=== PATIENT | male | born 1960 | race Caucasian/White ===

== ENCOUNTER 2021-01-26 12:57 | Outpatient (REF) | payer BC, SELFPAY ==
[2021-01-26 13:56] LABS: Appearance Urine HAZY; Color Urine YELLOW; Glucose Urine UA NEG (NEG); Leukocyte Esterase Urine NEG (NEG); Nitrite Urine NEG (NEG); Specific Gravity - Urine 1.025 (1.005-1.025); UACC Culture Trigger NO; Urine Blood 3+ (NEG); Urine Ketones NEG (NEG); Urine Protein TRACE MG/DL (NEG-TRACE)
[2021-01-26 14:33] LABS: RBC Urine TNTC /HPF (0)
[2021-01-26 14:34] LABS: WBC Urine 0 /HPF (0-4)
[2021-01-27 07:25] LABS: Urine Cytology See Pathology rpt
== END 2021-01-26 12:58 | disposition home or self-care (01) ==
LOC: HO.10HDL 12:57
PROVIDERS: Visit Provider Physician Assistant
DX: N28.1 Cyst of kidney, acquired (principal)
CPT/HCPCS: 81001; 81003; 88112

== ENCOUNTER 2021-01-27 07:32 | Emergency (ER) | payer BC, SELFPAY ==
--- NOTE | ~2021-01-27 | CT_ITS ---
EXAMINATION: CT ABDOMEN AND PELVIS WITHOUT CONTRAST CLINICAL INFORMATION: Hematuria. COMPARISON: CT abdomen pelvis 06/25/2018. TECHNIQUE: Multidetector volumetric imaging was performed from the superior aspect of the liver through the pubic symphysis. Sagittal and coronal reformatted images were obtained on the technologist's workstation. This CT examination was performed using dose optimization techniques as appropriate, variously including the following: *Automated exposure control *Adjustment of mA and/or kV according to patient size (this includes techniques or standardized protocols for targeted exams where dose is matched to indication/reason for exam; i.e. extremities or head) *Use of iterative reconstruction technique DLP: 721 mGy-cm FINDINGS: LUNG BASES: The visualized lung bases are unremarkable. LIVER, GALLBLADDER, AND BILIARY TREE: The liver is normal in size, shape, and attenuation. No focal hepatic lesion or biliary ductal dilatation is present. The gallbladder is unremarkable with no evidence of radiopaque gallstones, gallbladder wall thickening, or obvious pericholecystic inflammatory changes. PANCREAS: Unremarkable. SPLEEN: Unremarkable. ADRENAL GLANDS: Unremarkable. KIDNEYS AND URETERS: No hydronephrosis or perinephric inflammatory changes are identified. A 2 mm cortical calcification is present along the lateral aspect of the interpolar segment of the left kidney slightly more conspicuous than on the comparison exam of 06/25/2018. No additional nephrolithiasis is identified. Multifocal cortical thinning of the left kidney is present and unchanged compared with 06/25/2018 suspicious for chronic cortical scarring. A 7 mm rounded partially exophytic focus (9 Hounsfield units) is associated with the anterior aspect of the interpolar segment left kidney consistent with a benign, simple cyst requiring no additional imaging follow-up. BLADDER: A 1 mm borderline punctate hyperdensity is identified in the region of the left ureterovesicular junction (series 3 image 661). This finding is at the borderline of spatial resolution of the examination appears new compared with 06/25/2018. GASTROINTESTINAL TRACT: Moderate sigmoid diverticulosis. No pericolonic inflammatory changes to suggest acute diverticulitis. Normal appendix. Normal terminal ileum. No free intraperitoneal fluid or gas collections. Normal appearance of the stomach. Concentric mural thickening of the urinary bladder. ABDOMINAL WALL: No significant hernia is appreciated. LYMPH NODES: Normal. VASCULAR: Moderate scattered calcific atherosclerosis. PELVIC VISCERA: The prostate measures 4 cm in maximum AP dimension and exhibits a benign-appearing dystrophic calcifications. OSSEOUS STRUCTURES: Mild multilevel chronic spondylosis of the visualized thoracolumbar spine. CT/CT abdomen pelvis wo con IMPRESSION: -Borderline findings suspicious for a 1 mm calculus at the left ureterovesicular junction. No hydronephrosis or ureterectasis. No additional obstructing urolithiasis. A single 2 mm cortical calcification is present in the interpolar segment of the left kidney. No additional nephrolithiasis is visualized. -Moderate sigmoid diverticulosis. No evidence of diverticulitis. -Mild diffuse prostatic enlargement. Mild diffuse mural thickening of the urinary bladder which may represent chronic trabeculation and mural hypertrophy related to chronic urinary bladder outlet obstruction. -Moderate diffuse calcific atherosclerosis.
[2021-01-27 07:37] VITALS: BP 164/78; PULSE 80; RESP 16; TEMP 36.9; O2SAT 99; BMI 29.0
--- NOTE | 2021-01-27 08:04 | ED_ITS ---
HPI - Male Genitourinary General Chief complaint: Urogenital-Male Stated complaint: blood in urine Time Seen by Provider: 01/27/21 07:45 Source: patient Mode of arrival: ambulatory Limitations: no limitations History of Present Illness HPI Narrative: PCP sent him on flomax and macrobid yesterday Complaint: other (hematuria) Onset (ago): day(s) (8) Duration: constant Location: penis Severity: mild Relieving factors: none Exacerbating factors: urination Context: other (hx of same in past - occurs this time of year, no AC therapy no ASA hx of stones and cysts) Associated symptoms: Reports blood in urine (noted some small clots but has not had trouble voiding) Related Data Previous Rx's Medication Instructions Recorded lisinopril 40 mg tablet 40 mg PO DAILY #90 tab 08/12/20 lorazepam 1 mg tablet 1 mg PO DAILY PRN 15 Days #15 tab 08/23/20 simvastatin 20 mg tablet 20 mg PO DAILY #90 tab 11/10/20 nitrofurantoin macrocrystal 100 mg 100 mg PO Q12H 7 Days #14 cap 01/25/21 capsule tamsulosin 0.4 mg capsule 0.4 mg PO BEDTIME 14 Days #14 cap 01/25/21 Allergies Allergy/AdvReac Type Severity Reaction Status Date / Time azithromycin [AZITHROMYCIN] Allergy Intermediate RASH Verified 01/03/20 07:28 prednisone Allergy Unknown rash Verified 12/25/18 00:00 Review of Systems Review of Systems: Constitutional : No Fever, No Chills ENT/Mouth : No sore throat Eyes: No Eye Pain, No Swelling, No Redness Cardiovascular : No Chest Pain, No SOB Respiratory : No Cough, No Sputum, No Wheezing Gastrointestinal :no Nausea, no Vomiting, No Diarrhea, no abdominal pain Genitourinary : no Dysuria, no urinary frequency, positive Hematuria, no Flank Pain, no hesitancy Musculoskeletal : No joint pain, No Myalgias Skin : No Skin Lesions, No rash Neuro : No Weakness, No Numbness, No Headache Psych : No Anxiety/Panic, No Depression Heme/Lymph: No Bruising, No Lymphadenopathy Endocrine : No Polyuria, No Polydipsia All other systems reviewed and are negative [facility] Past Medical History Medical History HTN (hypertension) Nephrolithiasis Renal cyst Surgical History (Updated 01/03/20 @ 07:28 by FORD Pulido) No pertinent past surgical history Family History Family History (Updated 01/03/20 @ 07:30 by FORD Pulido) Father Medical history unknown Mother COPD (chronic obstructive pulmonary disease) Sister Arrhythmia Son Automobile accident Social History Social History (Updated 01/27/21 @ 08:23 by Toña Christopher DO) Patient Tobacco Use Status: Never used Tobacco Advance Directives: No Advance Directives Information Provided: No Physical Exam Vital Signs: Vital Signs: Last Vital Signs Temp 98.3 F 01/27/21 08:35 Pulse 79 01/27/21 08:35 Resp 18 01/27/21 08:35 BP 155/94 H 01/27/21 08:35 Pulse Ox 98 01/27/21 08:35 BMI result Body Mass Index 29.0 Appearance: Alert. Oriented X3. No acute distress. Eyes: Pupils equal, round and reactive to light. ENT: Pharynx normal. Neck: Normal inspection. Neck supple. CVS: Normal heart rate and rhythm. Pulses normal. Respiratory: No respiratory distress. Breath sounds normal. Abdomen: Soft and non-tender. Skin: Skin warm and dry. Normal skin color. Extremities: No lower extremity edema. Neuro: Oriented X 3. No motor deficit. No sensory deficit. Course Course Course Narrative: cause is likely small stone - no issues voiding labs normal can be managed at home, has no pain MDM - Male Genitourinary MDM Narrative Medical decision making narrative: 60 yo male with hx of renal cysts and stones - has no pain here today with 8 days of hematuria at this time he has no trouble voiding and clots are small - no pain. His symptoms do usually occur this time of year ?related to bowling. At this time he is on flomax and macrobid from PCP. Will obtain labs, UA, CT scan for mass/stone. Dispo per results and findings. Lab Data Result diagrams: 01/27/21 08:33 01/27/21 08:33 Labs: Lab Results 01/27/21 01/27/21 Range/Units 08:33 08:33 PT 11.2 (9.9-13.0) SEC INR 1.0 (0.9-1.1) APTT 35.0 (24.1-38.0) SEC Urine Color YELLOW Urine Appearance HAZY Urine pH 6.0 (5.0-8.0) Ur Specific [place] 1.025 (1.005-1.025) Urine Protein NEG (NEG-TRACE) MG/DL Urine Glucose (UA) NEG (NEG) MG/DL Urine Ketones NEG (NEG) MG/DL Urine Blood 3+ H (NEG) Urine Nitrite NEG (NEG) Ur Leukocyte Esterase NEG (NEG) Urine RBC 76-150 H (0) /HPF Urine WBC 0 (0-4) /HPF Ur Squamous Epith Cells TRACE /LPF Urine Bacteria NONE /LPF Discharge Plan Discharge Clinical Impression: Ureterolithiasis Patient Disposition: Home, Self-Care Instructions: Ureteral Stones (ED) Additional Instructions: return to ED for any worsening symptoms or concerns -Borderline findings suspicious for a 1 mm calculus at the left ureterovesicular junction. No hydronephrosis or ureterectasis. No additional obstructing urolithiasis. A single 2 mm cortical calcification is present in the interpolar segment of the left kidney. No additional nephrolithiasis is visualized. -Moderate sigmoid diverticulosis. No evidence of diverticulitis. -Mild diffuse prostatic enlargement. Mild diffuse mural thickening of the urinary bladder which may represent chronic trabeculation and mural hypertrophy related to chronic urinary bladder outlet obstruction. -Moderate diffuse calcific atherosclerosis. continue all medications prescribed by Maxim IF YOU CANNOT VOID OR BLEEDING WORSENS PLEASE RETURN Prescriptions: No Action lisinopril 40 mg tablet 40 mg PO DAILY Qty: 90 RF: 2 lorazepam 1 mg tablet 1 mg PO DAILY PRN (Reason: anxiety) 15 Days Qty: 15 RF: 0 simvastatin 20 mg tablet 20 mg PO DAILY Qty: 90 RF: 1 tamsulosin 0.4 mg capsule 0.4 mg PO BEDTIME 14 Days Qty: 14 RF: 0 nitrofurantoin macrocrystal 100 mg capsule 100 mg PO Q12H 7 Days Qty: 14 RF: 0 Referrals: Castillo Carvalho MD [Physician] - 2 weeks
[2021-01-27 08:35] VITALS: BP 155/94; PULSE 79; RESP 18; TEMP 36.8; O2SAT 98
[2021-01-27 08:43] LABS: MANUAL DIFF FLAG NO
[2021-01-27 08:44] LABS: Appearance Urine HAZY; Color Urine YELLOW; Glucose Urine UA NEG (NEG); Leukocyte Esterase Urine NEG (NEG); Nitrite Urine NEG (NEG); Specific Gravity - Urine 1.025 (1.005-1.025); UACC Culture Trigger NO; Urine Blood 3+ (NEG); Urine Ketones NEG (NEG); Urine Protein NEG (NEG-TRACE)
[2021-01-27 08:49] LABS: Prothrombin Time 11.2 SEC (9.9-13.0)
[2021-01-27 08:58] LABS: Squamous Epithelial Cell Urine TRACE /LPF; WBC Urine 0 /HPF (0-4)
[2021-01-27 09:06] LABS: Basophils Percent Auto 0.4 % (0-2); Eosinophils Absolute Auto 0.2 X10*3/uL (0.0-0.4); Hematocrit 40.9 % (42.0-52.0); Hemoglobin 14.3 g/dl (14.0-18.0); Imm Gran Abs Auto 0.06 X10*3/uL (0.00-0.03); Imm Gran Pct Auto 0.7 % (0.0-0.4); Lymphocytes Absolute Auto 2.2 X10*3/uL (1.2-4.9); Lymphocytes Percent Auto 26.5 % (20-40); Mean Corpuscular Hemoglobin 31.1 pg (27.0-33.0); Mean Corpuscular Volume 88.9 fL (80.0-98.0); Monocytes Absolute Auto 0.9 X10*3/uL (0.1-1.2); Monocytes Percent Auto 10.6 % (2-11); Neutrophils Percent Auto 59.8 % (45-73); Platelet Count 232 X10*3/uL (160-400); Red Cell Distribution Width 11.9 % (11.0-16.0); White Blood Count 8.4 X10*3/uL (4.8-10.8)
[2021-01-27 09:16] LABS: Alanine Aminotransferase 39 U/L (0-40); Albumin Level 4.4 g/dL (3.5-5.0); Alkaline Phosphatase 107 U/L (39-117); Anion Gap 15 (12-20); Aspartate Amino Transferase 28 U/L (5-37); Bilirubin Direct 0.2 mg/dL (0.0-0.5); Bilirubin Total 0.4 mg/dL (0.0-1.0); Blood Urea Nitrogen 17 mg/dL (9-16); Calcium 9.7 mg/dL (8.4-10.2); Carbon Dioxide 24 mmol/L (22-29); Chloride 100 mmol/L (96-108); Creatinine Clr Calc Pharmacy 80.6; Estimated Glomerular Filt Rate > 60; Glucose Random 183 mg/dL (60-115); Potassium 4.6 mmol/L (3.3-5.1); Sodium 134 mmol/L (135-145); Total Protein 7.4 g/dL (6.5-8.0)
--- NOTE | 2021-01-27 09:18 | PC.NURSE ---
Pt comes in with complaints of hematuria x 8 days, is currently on lamictal and antibiotic for treatment, unable to see urologist until February, due to increasing blood clots, PCP suggested he come to the ED. Pt is A&Ox3, LCA, abd soft, non tender, + bs x3, no complaints of pain at this time, denies any other urinary S/S, no pain, hesitancy, etc. Urine at bedside is cloudy and dark josemanuel, no clots seen. CT scan completed, awaiting dispo at this time. Will continue to monitor.
== END 2021-01-27 09:43 | disposition home or self-care (01) ==
PROVIDERS: Emergency Provider Emergency Medicine; PCP Physician Assistant
DX: N13.4 Hydroureter (principal); Z87.442 Personal history of urinary calculi; I10 Essential (primary) hypertension
CPT/HCPCS: 36415; 74176; 80048; 80076; 81001; 85025; 85610; 85730; 99284

== ENCOUNTER 2021-02-01 08:31 | Outpatient (REF) | payer BC, SELFPAY ==
[2021-02-01 10:39] LABS: Hematocrit 40.9 % (42.0-52.0); Hemoglobin 14.1 g/dl (14.0-18.0); Mean Corpuscular HGB Conc 34.5 g/dl (31.0-36.0); Mean Corpuscular Hemoglobin 30.9 pg (27.0-33.0); Mean Corpuscular Volume 89.7 fL (80.0-98.0); Mean Platelet Volume 9.5 fL (9.4-12.4); Platelet Count 245 X10*3/uL (160-400); Red Blood Count 4.56 X10*6/uL (4.60-5.80); Red Cell Distribution Width 12.1 % (11.0-16.0); White Blood Count 7.1 X10*3/uL (4.8-10.8)
[2021-02-01 10:47] LABS: Appearance Urine CLEAR; Color Urine YELLOW; Glucose Urine UA NEG (NEG); Leukocyte Esterase Urine NEG (NEG); Nitrite Urine NEG (NEG); Specific Gravity - Urine 1.025 (1.005-1.025); UACC Culture Trigger NO; Urine Blood 3+ (NEG); Urine Ketones NEG (NEG); Urine Protein NEG (NEG-TRACE)
[2021-02-01 10:48] LABS: Estimated Average Glucose 131 mg/dL; Hemoglobin A1c % 6.2 %
[2021-02-01 10:55] LABS: Alanine Aminotransferase 32 U/L (0-40); Albumin Level 4.4 g/dL (3.5-5.0); Alkaline Phosphatase 85 U/L (39-117); Anion Gap 13 (12-20); Aspartate Amino Transferase 24 U/L (5-37); Bilirubin Total 0.7 mg/dL (0.0-1.0); Blood Urea Nitrogen 16 mg/dL (9-16); Calcium 9.5 mg/dL (8.4-10.2); Carbon Dioxide 25 mmol/L (22-29); Chloride 102 mmol/L (96-108); Cholesterol 181 mg/dL; Estimated Glomerular Filt Rate > 60; Glucose Fasting 131 mg/dL (60-99); HDL Cholesterol 37 mg/dL; LDL Cholesterol Calculated 81 mg/dl; Potassium 4.3 mmol/L (3.3-5.1); Sodium 136 mmol/L (135-145); Total Protein 7.3 g/dL (6.5-8.0); Triglycerides 315 mg/dL
[2021-02-01 11:04] LABS: Creatinine Urine 165.32 mg/dL; Microalbum/Creatinine Ratio Ur 5.4 ug/mg cr
[2021-02-01 11:17] LABS: Prostate Specific Antigen Scr 1.41 ng/mL (<0.05-4.0); TSH reflex Free T4 1.27 uIU/mL (0.32-4.0)
[2021-02-01 11:55] LABS: RBC Urine 30-49 /HPF (0); WBC Urine 0 /HPF (0-4)
== END 2021-02-01 08:32 | disposition home or self-care (01) ==
LOC: HO.10HDL 08:31
PROVIDERS: Visit Provider Physician Assistant
DX: I10 Essential (primary) hypertension (principal); R30.0 Dysuria; N28.1 Cyst of kidney, acquired; Z12.5 Encounter for screening for malignant neoplasm of prostate
CPT/HCPCS: 36415; 80053; 80061; 81001; 82043; 83036; 84153; 84443; 85027

== ENCOUNTER 2021-02-13 13:12 | Outpatient (REF) | payer BC, SELFPAY ==
--- NOTE | ~2021-02-13 | US_ITS ---
EXAMINATION: US RETROPERITONEAL LIMITED (RENAL ONLY) CLINICAL INFORMATION: Cyst of kidney, acquired. COMPARISON: CT abdomen and pelvis without contrast dated 01/27/2021. TECHNIQUE: Real-time imaging of the kidneys. FINDINGS: RIGHT KIDNEY: 14.0 x 5.6 x 6.6 cm (SAG x AP x TRV). The kidney is normal in size, contour, and echogenicity. Renal cortical thickness is normal. No calculi or focal parenchymal lesions. No hydronephrosis. LEFT KIDNEY: 12.2 x 5.0 x 5.1 cm (SAG x AP x TRV). The kidney is normal in size and echogenicity. Contour is mildly lobular. Renal cortical thickness is normal. No renal calculi or hydronephrosis. A lower pole 1.5 x 1.2 x 1.4 cm cyst is present which needs no further follow-up. No solid masses. Incidental note made of an echogenic liver consistent with hepatic steatosis. US/US renal BI IMPRESSION: 1. The left kidney contour is slightly lobular. Both kidneys are normal size and normal with incidentally noted left lower pole renal cyst which needs no further follow-up. 2. Incidentally noted hepatic steatosis.
== END 2021-02-13 13:13 | disposition home or self-care (01) ==
LOC: HO.US 13:12
PROVIDERS: PCP Physician Assistant; Visit Provider Urology
DX: N28.1 Cyst of kidney, acquired (principal)
CPT/HCPCS: 76775

== ENCOUNTER → 2021-02-20 13:52 | Outpatient (BNVA) | payer BC, SELFPAY | PROVIDERS: PCP Physician Assistant; Visit Provider Urology | DX: N20.0 Calculus of kidney (principal) | CPT/HCPCS: 81002 ==

== ENCOUNTER 2021-07-30 12:27 | Outpatient (REF) | payer BC, SELFPAY ==
--- NOTE | ~2021-07-30 | US_ITS ---
EXAMINATION: US RETROPERITONEAL LIMITED (RENAL ONLY) CLINICAL INFORMATION: Calculus of kidney. COMPARISON: Ultrasound renal 02/13/2021 and 06/01/2018. CT abdomen and pelvis 01/27/2021. TECHNIQUE: Real-time imaging of the kidneys. FINDINGS: RIGHT KIDNEY: 13.4 x 6.4 x 6.4 cm (SAG x AP x TRV). The kidney is normal in size, contour, and echogenicity. Renal cortical thickness is normal. No renal calculi or hydronephrosis. LEFT KIDNEY: 12.1 x 5.0 x 5.2 cm (SAG x AP x TRV). The kidney is normal in size and echogenicity. The contour of the left kidney is slightly lobulated. There are areas of left renal cortical thinning or scarring. There is a 1.4 x 1.1 x 1.7 cm cyst in the lower pole. No renal calculi or hydronephrosis. The small left renal stones seen by CT January 2021 are not appreciated. US/US renal BI IMPRESSION: Stable small left renal cyst. No stone appreciated by ultrasound.
== END 2021-07-30 12:28 | disposition home or self-care (01) ==
LOC: HO.US 12:27
PROVIDERS: Visit Provider Urology
DX: N20.0 Calculus of kidney (principal)
CPT/HCPCS: 76775

== ENCOUNTER 2021-08-03 06:30 | Outpatient (REF) | payer BC, SELFPAY ==
[2021-08-03 07:24] LABS: Hematocrit 41.8 % (42.0-52.0); Hemoglobin 14.3 g/dl (14.0-18.0); Mean Corpuscular HGB Conc 34.2 g/dl (31.0-36.0); Mean Corpuscular Hemoglobin 30.5 pg (27.0-33.0); Mean Corpuscular Volume 89.1 fL (80.0-98.0); Mean Platelet Volume 9.5 fL (9.4-12.4); Platelet Count 226 X10*3/uL (160-400); Red Blood Count 4.69 X10*6/uL (4.60-5.80); Red Cell Distribution Width 12.4 % (11.0-16.0); White Blood Count 8.9 X10*3/uL (4.8-10.8)
[2021-08-03 07:40] LABS: Estimated Average Glucose 123 mg/dL; Hemoglobin A1c % 5.9 %
[2021-08-03 07:49] LABS: Alanine Aminotransferase 33 U/L (0-40); Albumin Level 4.4 g/dL (3.5-5.0); Alkaline Phosphatase 82 U/L (39-117); Anion Gap 13 (12-20); Aspartate Amino Transferase 25 U/L (5-37); Bilirubin Total 0.8 mg/dL (0.0-1.0); Blood Urea Nitrogen 15 mg/dL (9-16); Carbon Dioxide 22 mmol/L (22-29); Chloride 103 mmol/L (96-108); Cholesterol 166 mg/dL; Estimated Glomerular Filt Rate > 60; Glucose Fasting 129 mg/dL (60-99); HDL Cholesterol 36 mg/dL; LDL Cholesterol Calculated 56 mg/dl; Potassium 4.3 mmol/L (3.3-5.1); Sodium 134 mmol/L (135-145); Total Protein 7.3 g/dL (6.5-8.0); Triglycerides 370 mg/dL
[2021-08-03 07:55] LABS: Appearance Urine CLEAR; Color Urine YELLOW; Glucose Urine UA NEG (NEG); Leukocyte Esterase Urine NEG (NEG); Nitrite Urine NEG (NEG); Specific Gravity - Urine >= 1.030 (1.005-1.025); Urine Blood NEG (NEG); Urine Ketones NEG (NEG); Urine Protein NEG (NEG-TRACE)
== END 2021-08-03 06:31 | disposition home or self-care (01) ==
LOC: HO.LAB 06:30
PROVIDERS: PCP Physician Assistant; Visit Provider Physician Assistant
DX: E78.5 Hyperlipidemia, unspecified (principal); N28.1 Cyst of kidney, acquired; R30.0 Dysuria
CPT/HCPCS: 36415; 80053; 80061; 81003; 83036; 84443; 85027

== ENCOUNTER 2022-01-25 06:34 | Outpatient (REF) | payer BC, SELFPAY ==
[2022-01-25 07:25] LABS: Hematocrit 44.2 % (42.0-52.0); Hemoglobin 14.9 g/dl (14.0-18.0); Mean Corpuscular HGB Conc 33.7 g/dl (31.0-36.0); Mean Corpuscular Hemoglobin 30.1 pg (27.0-33.0); Mean Corpuscular Volume 89.3 fL (80.0-98.0); Mean Platelet Volume 9.8 fL (9.4-12.4); Platelet Count 185 X10*3/uL (160-400); Red Blood Count 4.95 X10*6/uL (4.60-5.80); Red Cell Distribution Width 11.9 % (11.0-16.0); White Blood Count 8.6 X10*3/uL (4.8-10.8)
[2022-01-25 07:56] LABS: Estimated Average Glucose 137 mg/dL; Hemoglobin A1c % 6.4 %
[2022-01-25 08:19] LABS: Alanine Aminotransferase 30 U/L (0-40); Albumin Level 4.4 g/dL (3.5-5.0); Alkaline Phosphatase 81 U/L (39-117); Anion Gap 12 (12-20); Aspartate Amino Transferase 25 U/L (5-37); Bilirubin Total 0.6 mg/dL (0.0-1.0); Blood Urea Nitrogen 19 mg/dL (9-16); Calcium 9.4 mg/dL (8.4-10.2); Carbon Dioxide 25 mmol/L (22-29); Chloride 103 mmol/L (96-108); Cholesterol 170 mg/dL; Estimated Glomerular Filt Rate > 60; Glucose Fasting 133 mg/dL (60-99); HDL Cholesterol 34 mg/dL; LDL Cholesterol Calculated 80 mg/dl; Potassium 4.3 mmol/L (3.3-5.1); Prostate Specific Antigen Scr 1.77 ng/mL (<0.05-4.0); Sodium 136 mmol/L (135-145); TSH reflex Free T4 2.02 uIU/mL (0.32-4.0); Total Protein 7.1 g/dL (6.5-8.0); Triglycerides 283 mg/dL
== END 2022-01-25 06:35 | disposition home or self-care (01) ==
LOC: HO.LAB 06:34
PROVIDERS: PCP Physician Assistant; Visit Provider Physician Assistant
DX: E78.2 Mixed hyperlipidemia (principal); R73.01 Impaired fasting glucose; Z12.5 Encounter for screening for malignant neoplasm of prostate
CPT/HCPCS: 36415; 80053; 80061; 83036; 84153; 84443; 85027

== ENCOUNTER → 2022-02-13 08:45 | Outpatient (REF) | payer BC, SELFPAY ==
--- NOTE | 2022-02-13 08:57 | CA_ITS ---
Acquisition Time: 2022-02-13 08:59:30 Total Exercise Time: 00:07:30 Test Indications: Dyspnea Medications: LISINOPRIL LORAZAPAM SIMVASTATIN TAMSULOSIN AMLODIPINE METFORMIN Protocol: JAMES Max HR: 146 BPM 92% of Pred: 157 BPM Max BP: 184/084 mmHG Max Work Load: 9.3 METS Exercise stress test with exercise 7 min 30 sec of James protocol, achieving 92% MPHR, 9.3 METs, without anginal symptoms, with isolated PACs, atrial cuplets, freq PVCs, multifocal cuplets, with borderline ST depressions V4-V6. Test reviewed with Dr Noé Raygoza sent to PCP with report and recommendation for stress echocardiogram for further evaluation. Referred By: Alcon Pan Overread By: DARREN URENA
== END ==
LOC: HO.CARD 08:45
PROVIDERS: Visit Provider Physician Assistant
DX: R06.02 Shortness of breath (principal)
CPT/HCPCS: 93017

== ENCOUNTER → 2022-03-08 10:43 | Outpatient (REF) | payer BC, SELFPAY ==
--- NOTE | 2022-03-08 10:46 | CA_ITS ---
Acquisition Time: 2022-03-08 10:53:03 Total Exercise Time: 00:07:28 Test Indications: ABN ETT Medications: SEE CHART Protocol: LIZ Max HR: 153 BPM 97% of Pred: 157 BPM Max BP: 166/078 mmHG Max Work Load: 9.2 METS Exercise stress test with exercise 7 min 28 sec of Liz protocol, achieving 96% MPHR, without anginal symptoms, with isolated PACs, frequent isolated PVCs, multifocal cuplets and runs of trigemny, with normotensive response to exercise, with EKGs showing borderline ST changes. Echo images obtained by tech at rest and immediately post peak exercise. Definity contrast used. Test reviewed with Dr Umanzor STRESS ECHO : Technique : Images were obtained at rest and post exercise within 45 seconds. Definity contrast was used to enhance endocardial defintion. Images were obtained in multiple views and compared side to side. Findings : Images at rest were borderline. Parasternal images wer sub optimal possible due to rib shadowing. On apical views the LV systolic function appears to be normal with no wall motion abnormalities. Post exercise images also are sub optimal on parasternal windows due to shadowing artefact. On apical windows LV sytsolic function shows excellent augmentation. There are no obvious regional wall motion abnormalities. Conclusion : Stress echo is negative for ischemia Referred By: Alcon Pan Overread By: BASSEM UMANZOR MD
== END ==
LOC: HO.CARD 10:43
PROVIDERS: PCP Physician Assistant; Visit Provider Physician Assistant
DX: R06.02 Shortness of breath (principal)
CPT/HCPCS: 93350; Q9957

== ENCOUNTER 2022-08-02 06:19 | Outpatient (REF) | payer BC, SELFPAY ==
[2022-08-02 07:29] LABS: Hematocrit 41.6 % (42.0-52.0); Hemoglobin 14.3 g/dl (14.0-18.0); Mean Corpuscular HGB Conc 34.4 g/dl (31.0-36.0); Mean Corpuscular Hemoglobin 30.6 pg (27.0-33.0); Mean Corpuscular Volume 88.9 fL (80.0-98.0); Mean Platelet Volume 9.5 fL (9.4-12.4); Platelet Count 218 X10*3/uL (160-400); Red Blood Count 4.68 X10*6/uL (4.60-5.80); Red Cell Distribution Width 12.3 % (11.0-16.0); White Blood Count 7.2 X10*3/uL (4.8-10.8)
[2022-08-02 07:52] LABS: Estimated Average Glucose 123 mg/dL; Hemoglobin A1c % 5.9 %
[2022-08-02 08:16] LABS: Alanine Aminotransferase 32 U/L (0-40); Albumin Level 4.2 g/dL (3.5-5.0); Alkaline Phosphatase 63 U/L (39-117); Anion Gap 13 (12-20); Aspartate Amino Transferase 22 U/L (5-37); Bilirubin Total 0.9 mg/dL (0.0-1.0); Blood Urea Nitrogen 16 mg/dL (9-16); Calcium 9.5 mg/dL (8.4-10.2); Carbon Dioxide 22 mmol/L (22-29); Chloride 103 mmol/L (96-108); Cholesterol 163 mg/dL; Estimated Glomerular Filt Rate > 60; Glucose Fasting 128 mg/dL (60-99); HDL Cholesterol 36 mg/dL; LDL Cholesterol Calculated 73 mg/dl; Potassium 4.1 mmol/L (3.3-5.1); Sodium 134 mmol/L (135-145); Total Protein 7.2 g/dL (6.5-8.0); Triglycerides 271 mg/dL
[2022-08-02 08:23] LABS: TSH reflex Free T4 2.07 uIU/mL (0.32-4.0)
== END 2022-08-02 06:20 | disposition home or self-care (01) ==
LOC: HO.LAB 06:19
PROVIDERS: PCP Physician Assistant; Visit Provider Physician Assistant
DX: E78.2 Mixed hyperlipidemia (principal); R73.01 Impaired fasting glucose; I10 Essential (primary) hypertension
CPT/HCPCS: 36415; 80053; 80061; 83036; 84443; 85027

== ENCOUNTER 2022-08-19 07:49 | Outpatient (REF) | payer BC, SELFPAY | END 2022-08-19 07:50 | disposition home or self-care (01) | LOC: HO.US 07:49 | PROVIDERS: PCP Physician Assistant; Visit Provider Urology | DX: N20.0 Calculus of kidney (principal) | CPT/HCPCS: 76775 ==

== ENCOUNTER 2022-09-03 08:12 | Outpatient (AMB) | payer BC, SELFPAY ==
--- NOTE | 2022-09-03 08:17 | MHC.OFFVIS ---
Intake Intake Visit Reasons: 1Y US(set) Intake Note: Patient is present for Follow Up US Urology Med: Tamsulosin Antibiotic Allergy: Azithromycin Blood Thinner: None Allergies azithromycin [AZITHROMYCIN] Allergy (Intermediate, Verified 09/03/22 08:19) RASH prednisone Allergy (Unknown, Verified 09/03/22 08:19) rash Medication List - Last Reconciled 09/03/22 by Castillo Carvalho MD amlodipine 2.5 mg PO DAILY 90 days ibuprofen 800 mg PO Q8H PRN 15 days lisinopril 40 mg PO DAILY lorazepam 1 mg PO DAILY PRN 15 days metformin 500 mg PO DAILY 90 days simvastatin 20 mg PO DAILY tamsulosin 0.4 mg PO BEDTIME 90 days HPI HPI Comments History of Present Illness Details Ochoa is a pleasant male. He is a patient of Dr. Pan. He is seen for the following urologic conditions - nephrolithiasis - lower urinary tract symptoms Normal ultrasound Does have some degree of weakness of stream Encourage trial tamsulosin 0.8 mg Twelve month follow-up Encouraged activity. HbA1c 5.9. 15 minute brisk stroll after dinner. Working at [employer] home Nephrolithiasis Initial presentation emergency room January 2021 Imaging - 02/06 CT scan mild diffuse prostatic enlargement with mural thickening representing chronic trabeculation and mural hypertrophy related to chronic urinary bladder outlet obstruction - 08/08 renal ultrasound small cyst left side 1.5 cm, no stones Initial voiding symptoms include weakness of stream. Good response tamsulosin Therapeutic plan - encourage fluids - surveillance imaging Lower urinary tract symptoms Improved with tamsulosin PSA 02/06 1.4 PFSH Medical History (Updated 09/03/22 @ 09:07 by Castillo Carvalho MD) Abnormal stress ECG BPH w urinary obs/LUTS HTN (hypertension) Nephrolithiasis Renal cyst Surgical History No pertinent past surgical history Family History Father Medical history unknown Mother COPD (chronic obstructive pulmonary disease) Sister Arrhythmia Son Automobile accident Social History Housing: House Alcohol intake: current Alcohol intake frequency: a few times a month Alcohol type: beer Patient Tobacco Use Status: Never used Tobacco e-Cigarette/Vaping Use: Never Used Current occupational status: employed Current occupation: [employer] Cognitive needs: No Hearing needs: No Vision needs: No Review of Systems Const Denies chills and Denies fever(s) Card Reports no additional complaints and Denies syncope Resp Denies cough GI Denies abdominal pain and Denies heartburn Reports as per HPI and Denies change in libido Neuro Denies syncope Psych Denies change in libido Endo Denies change in libido Physical Exam Const General: cooperative, healthy appearing, comfortable and no acute distress Orientation/consciousness: patient oriented x3 HEENT Face and sinus: Yes normal facial exam Mouth: moist mucous membranes Neck Neck: Yes normal visual inspection, Yes full ROM and Yes trachea midline Chest Chest palpation & inspection: normal inspection of the chest Resp Effort & Inspection: normal respiratory effort, able to speak in complete sentences and no respiratory distress GI Inspection: Yes normal to inspection Back/Spine/Pelvis Cervical Spine: normal cervical lordosis Thoracic/Lumbar Spine: thoracic and lumbar spine normal to inspection Skin General skin exam: no rashes or lesions noted Neuro General: patient oriented x3, gait normal, tone normal and moves all extremities Extrem General: Yes normal to inspection and Yes capillary refill normal Results AMB Urinalysis, Automated UA Leukoctes 0 Eve/uL Last Edit by FORD Nye on 09/03/22 08:26 UA Nitrite Negative Last Edit by FORD Nye on 09/03/22 08:26 UA Urobilinogen 0.2 mg/dL Last Edit by FORD Nye on 09/03/22 08:26 UA Protein 0 mg/dL Last Edit by FORD Nye on 09/03/22 08:26 UA pH 6.0 Last Edit by FORD Nye on 09/03/22 08:26 UA Blood 0 Roddy/uL Last Edit by FORD Nye on 09/03/22 08:26 UA Specific [place] 1.025 Last Edit by FORD Nye on 09/03/22 08:26 UA Ketone Negative Last Edit by FORD Nye on 09/03/22 08:26 UA Bilirubin 0 mg/dL Last Edit by FORD Nye on 09/03/22 08:26 UA Glucose 0 mg/dL Last Edit by FORD Nye on 09/03/22 08:26 Results Reviewed Results Reviewed: Laboratory Last Values Urine pH (Auto) 6.0 09/03/22 08:20 Specific [place] (Auto) 1.025 09/03/22 08:20 Urine Protein (Auto) 0 mg/dL 09/03/22 08:20 Glucose (UA)(Auto) 0 mg/dL 09/03/22 08:20 Urine Ketones (Auto) Negative 09/03/22 08:20 Urine Blood (Auto) 0 Roddy/uL 09/03/22 08:20 Urine Nitrite (Auto) Negative 09/03/22 08:20 Urine Bilirubin (Auto) 0 mg/dL 09/03/22 08:20 Urine Urobilinogen (Auto) 0.2 mg/dL 09/03/22 08:20 Leukocyte Esterase (Auto) 0 Eve/uL 09/03/22 08:20 Assessment & Plan Assessment & Plan (1) Renal cyst: Code(s): N28.1 - Cyst of kidney, acquired (2) BPH w urinary obs/LUTS: Code(s): N40.1 - Benign prostatic hyperplasia with lower urinary tract symptoms; N13.8 - Other obstructive and reflux uropathy Plan 12 month follow-up Orders: Orders AMB Urinalysis Automated Today Z13.9 - Encounter for screening, unspecified US renal BI 365 Days N28.1 - Cyst of kidney, acquired Patient Instructions: Imaging studies, laboratory and physical exam results were discussed and reviewed in detail. No major barriers to patient understanding were identified. An opportunity to ask questions regarding the treatment plan was provided. All questions were answered. The patient expressed understanding and agreement with the above treatment plan. The patient is aware they should contact our office by phone for worsening of their current condition or the appearance of new urologic symptoms. Compliance is encouraged with any medications and followup testing that is ordered. It is a privilege to participate in the urologic care of your patient. If you have any questions or concerns regarding treatment for the above conditions, or other urologic issues, please do not hesitate to contact me. The office telephone contact is [phone]. This note is constructed using voice recognition software. While every effort has been made to ensure accuracy forest science professor errors may have been included. Yours sincerely, Dr Castillo Carvalho MD, [facility] - Urology Providers of Expert, Compassionate Care for the Genitourinary System Coding Level of Care Code Est Pt Level 4 (08546) Diagnoses Renal cyst N28.1 BPH w urinary obs/LUTS N40.1; N13.8
== END 2022-09-03 09:07 | disposition home or self-care (01) ==
PROVIDERS: Visit Provider Urology
DX: N28.1 Cyst of kidney, acquired (principal); N40.1 Benign prostatic hyperplasia with lower urinary tract symptoms; N13.8 Other obstructive and reflux uropathy
CPT/HCPCS: 99213

== ENCOUNTER → 2022-09-03 08:12 | Outpatient (BNVA) | payer BC, SELFPAY | PROVIDERS: Visit Provider Urology ==

== ENCOUNTER 2023-01-31 07:04 | Outpatient (REF) | payer BC, SELFPAY ==
[2023-01-31 07:54] LABS: Hematocrit 41.5 % (42.0-52.0); Hemoglobin 14.3 g/dl (14.0-18.0); Mean Corpuscular HGB Conc 34.5 g/dl (31.0-36.0); Mean Corpuscular Hemoglobin 30.4 pg (27.0-33.0); Mean Corpuscular Volume 88.1 fL (80.0-98.0); Mean Platelet Volume 9.3 fL (9.4-12.4); Platelet Count 222 X10*3/uL (160-400); Red Blood Count 4.71 X10*6/uL (4.60-5.80); Red Cell Distribution Width 11.9 % (11.0-16.0); White Blood Count 7.7 X10*3/uL (4.8-10.8)
[2023-01-31 08:20] LABS: Alanine Aminotransferase 38 U/L (0-40); Albumin Level 4.2 g/dL (3.5-5.0); Alkaline Phosphatase 86 U/L (39-117); Anion Gap 17 (12-20); Aspartate Amino Transferase 28 U/L (5-37); Bilirubin Total 0.5 mg/dL (0.0-1.0); Blood Urea Nitrogen 14 mg/dL (9-16); Calcium 9.3 mg/dL (8.4-10.2); Carbon Dioxide 22 mmol/L (22-29); Chloride 103 mmol/L (96-108); Cholesterol 161 mg/dL (<200); Estimated Glomerular Filt Rate > 60; Glucose Fasting 122 mg/dL (60-99); HDL Cholesterol 41 mg/dL (>40); LDL Cholesterol Calculated 82 mg/dL (<100); Potassium 4.3 mmol/L (3.3-5.1); Sodium 138 mmol/L (135-145); Total Protein 7.3 g/dL (6.5-8.0); Triglycerides 194 mg/dL (<150)
[2023-01-31 08:36] LABS: Prostate Specific Antigen Scr 1.52 ng/mL (<0.05-4.0)
[2023-01-31 09:12] LABS: Creatinine Urine 139.01 mg/dL; Microalbum/Creatinine Ratio Ur 5.7 ug/mg cr (<30)
== END 2023-01-31 07:05 | disposition home or self-care (01) ==
LOC: HO.LAB 07:04
PROVIDERS: PCP Physician Assistant; Visit Provider Physician Assistant
DX: I10 Essential (primary) hypertension (principal); E78.2 Mixed hyperlipidemia; Z12.5 Encounter for screening for malignant neoplasm of prostate
CPT/HCPCS: 36415; 80053; 80061; 82043; 82570; 84153; 85027

== ENCOUNTER 2023-03-31 10:55 | Outpatient (AMB) | payer BC, SELFPAY ==
[2023-03-31 11:05] VITALS: BP 160/80; BMI 29.3
--- NOTE | 2023-03-31 11:05 | A.OFFPC_ITS ---
Vital Signs 03/31/23 11:05 03/31/23 11:36 Height 5 ft 9 in Weight 198 lb 8 oz BMI 29.3 BP 160/80 H 130/80 Blood Pressure Location Lt brachial Position Sitting Intake Visit Reasons: f/u HTN Legal Administrative Secretary Required: No Accompanied by: Self / Same As Patient Allergies azithromycin [AZITHROMYCIN] Allergy (Intermediate, Verified 03/31/23 11:11) RASH prednisone Allergy (Unknown, Verified 03/31/23 11:11) rash Medication List - Last Reconciled 03/31/23 by Alcon Pan PA-C amlodipine 2.5 mg PO DAILY 90 days ibuprofen 800 mg PO Q8H PRN 15 days lisinopril 40 mg PO DAILY lorazepam 1 mg PO DAILY PRN 15 days metformin 500 mg PO DAILY 90 days simvastatin 20 mg PO DAILY tamsulosin 0.4 mg PO BEDTIME 90 days Tobacco use date assessed: 03/15/22 HPI f/u HTN HPI Details Patient is a 62-year-old male here today for a follow-up visit.? Patient has a past medical history significant for hypertension, generalized anxiety disorder, impaired glucose metabolism, nephrolithiasis, hyperlipidemia, BPH. Concern--> does report shoveling wet snow and has had some muscular like soreness in his pectoral muscles pain. Has use ibuprofen which has been helpful on reducing his pain. .. Hypertension:? Patient's blood pressure today in office slightly elevated. Upon recheck blood pressure is stablized. He does report checking his blood pressure at home and reports 120s to 130 systolic.? Will continue him on dose of lisinopril and amlodipine.? Otherwise denies any chest discomfort, shortness of breath, palpitations headaches or dizziness. .. Impaired glucose metabolism: Has been a chronic finding. Most recent fasting blood sugar 122. A1c is have been in prediabetic range. Advised on reducing his carbohydrates any agrees and understands. .. Hyperlipidemia:? Continues on statin therapy without any side effects.? Most recent lipid panel improved. He reports he has drastically reduced his alcohol intake. .. Generalized anxiety disorder:? He does use lorazepam on a very limited p.r.n. basis.? Otherwise he reports his anxiety has been well controlled. [facility] Medical History Abnormal stress ECG BPH w urinary obs/LUTS Nephrolithiasis Renal cyst HTN (hypertension) Surgical History No pertinent past surgical history Family History Father Medical history unknown Mother COPD (chronic obstructive pulmonary disease) Sister Arrhythmia Son Automobile accident Social History Housing: House Alcohol intake: current Alcohol intake frequency: a few times a month Alcohol type: beer Patient Tobacco Use Status: Never used Tobacco e-Cigarette/Vaping Use: Never Used Current occupational status: employed Current occupation: [id number] Cognitive needs: No Hearing needs: No Vision needs: No Questionnaire PHQ-9 Over the last 2 weeks, how often have you been bothered by any of the following problems? 1. Little interest or pleasure in doing things: not at all 2. Feeling down, depressed, or hopeless: not at all 3. Trouble falling or staying asleep, or sleeping too much: not at all 4. Feeling tired or having little energy: not at all 5. Poor appetite or overeating: not at all 6. Feeling bad about yourself - or that you are a failure or have let yourself or your family down: not at all 7. Trouble concentrating on things, such as reading the newspaper or watching television: not at all 8. Moving or speaking so slowly that other people could have noticed. Or the opposite - being so fidgety or restless that you have been moving around a lot more than usual: not at all 9. Thoughts that you would be better off or of hurting yourself in some way: not at all Total score: 0 Depression Screening Interpretation: Negative Depression Screening Done: Yes 57818 - PHQ-9 Billing: Yes Source: Developed by Drs. Bo Lester, Jana Austin, Fili Louis and colleagues, with an educational tran from [employer]. Thrive Questionnaire Date Thrive assessed: 03/31/23 I am a: Patient What is your living situation today?: I have a steady place to live Within the past 12 months, did the food you bought not last and you didn't have the money to get more?: Never true Within the past 12 months, did you worry whether your food would run out before you got money to buy more?: Never true Do you have trouble paying for medicines?: No Do you have trouble getting transportation to medical appointments?: No Do you have trouble paying your heating and electricity bill?: No Do you have trouble taking care of your child, family member or friend?: No Do you have trouble with day-to-day activities such as bathing, preparing meals, shopping, managing finances, etc.?: No Are you currently unemployed and looking for a job?: No Are you interested in more education?: No Please select the resources that you would like help with: None Currently or been in a relationship where the following occur: no concerns reported THRIVE Score: 0 AUDIT C Alcohol Use Questionnaire (AUDIT-C) 1. How often do you have a drink containing alcohol?: Monthly or less 2. How many drinks containing alcohol do you have on a typical day when you are drinking?: 1 or 2 3. How often do you have six or more drinks on one occasion?: Never Total Score: 1 Score Reviewed/Action Taken: No ADDIE-7 AMB Questionnaire ADDIE-7 Date ADDIE - 7 assessed: 03/31/23 Feeling nervous, anxious, or on edge: 0 = Not at all Not being able to stop or control worryin = Not at all Worrying too much about different things: 0 = Not at all Trouble relaxin = Not at all Being so restless that it is hard to sit still: 0 = Not at all Becoming easily annoyed or irritable: 0 = Not at all Feeling afraid as if something awful might happen: 0 = Not at all Total ADDIE-7 score (0-4 normal; 5-9 mild; 10-14 moderate; 15-21 severe): 0 Source: Developed by Drs. Bo Lester, Jana Austin, Fili Louis and colleagues, with an educational tran from [employer]. ADDIE-7 Assessment Billing ADDIE-7 Assessment Tool: ADDIE-7 Assessment 69322 Review of Systems Const Denies headache(s) Eyes Denies loss of vision ENT Denies vertigo, Denies dizziness, Denies headache(s) and Denies sore throat Card Denies chest pain, Denies leg edema and Denies lightheadedness Resp Denies cough, Denies hemoptysis and Denies wheezing GI Denies abdominal pain, Denies melena, Denies constipation, Denies diarrhea and Denies vomiting Denies dysuria, Denies urinary frequency and Denies urinary urgency Musc Denies arthralgias, Denies joint swelling, Denies numbness and Denies tingling Neuro Denies Abnormal speech present, Denies behavioral changes, Denies vertigo, Denies dizziness, Denies headache(s), Denies loss of vision, Denies memory loss, Denies numbness and Denies tingling Psych Denies anxiety, Denies behavioral changes, Denies depression, Denies memory loss and Denies panic attacks Rory/Lymph Denies easy bleeding and Denies easy bruising Aller/Immun Denies wheezing Physical exam (Primary Care) Vital Signs: Last Vital Signs BP 160/80 H 03/31/23 11:05 BMI result Body Mass Index 29.3 Tobacco/Smoking Status: Tobacco use Status Tobacco use date assessed 03/15/22 03/31/23 11:06 Patient Tobacco Use Status Never used Tobacco 03/31/23 11:06 e-Cigarette/Vaping Use Never Used 03/31/23 11:06 PHQ-9: PHQ-9 Score PHQ-9: Total score 0 03/31/23 11:09 Depression Screening Interpretation: Negative Thrive Assessment: Date of Thrive Assessment Date Thrive assessed 03/31/23 03/31/23 11:09 Currently or been in a relationship where the following occur: no concerns reported Const General: healthy appearing, no acute distress, alert and awake Nutritional Appearance: well nourished Orientation/consciousness: oriented to person, oriented to place and oriented to time HENAR Ears: TM's normal bilaterally General nose exam: Normal nasal mucous membranes and turbinates present Eyes Conjunctivae: conjunctivae normal Sclerae: sclerae normal Pupils: Equal, round and reactive pupils present Neck Neck: Yes no lymphadenopathy and Yes no JVD Thyroid: Thyroid normal Carotids: no bruits Resp Effort & Inspection: normal respiratory effort and not tachypneic Auscultation: no crackles, no rales, no rhonchi and no wheezes Cardio Rate: regular rate Rhythm: regular rhythm Heart sounds: no murmurs and normal S1 and S2 GI Palpation (GI): Soft to palpation, nontender, no hepatomegaly and no splenomegaly Auscultation: normal bowel sounds Skin General skin exam: no rashes or lesions noted and dry skin Neuro General: oriented to person, oriented to place and oriented to time Cranial nerves: Yes Equal, round and reactive pupils present Speech: No Abnormal speech present Gait exam (Neuro): Normal gait present Motor exam (neuro): no tremor noted Extrem Right upper extremity: full ROM Left upper extremity: full ROM Right lower extremity: full ROM; no edema Left lower extremity: full ROM; no edema Psych Mental Status: mental status grossly normal Speech and movement: Normal speech and movement present Affect: normal affect Attitude: cooperative Thought process: Normal thought process present Assessment and Plan Assessment & Plan (1) HTN (hypertension): Code(s): I10 - Essential (primary) hypertension Qualifiers: Hypertension type: primary hypertension Qualified Code(s): I10 - Essential (primary) hypertension Plan: Patient's blood pressure slightly elevated today in office. He reports that blood pressures 120-130 systolic. Otherwise denies any chest discomfort, shortness of breath, headaches or vision issues. Continues current dose of amlodipine and lisinopril with goal blood pressure remain below 140/90 (2) Impaired fasting glucose: Code(s): R73.01 - Impaired fasting glucose Plan: Patient continues on metformin 500 daily. Has been making lifestyle modifications and reduced his alcohol intake. A1c stable and not in diabetic range. Will continue metformin 500 mg daily with goal A1c to remain below 6.5 (3) HLD (hyperlipidemia): Code(s): E78.5 - Hyperlipidemia, unspecified Qualifiers: Hyperlipidemia type: mixed hyperlipidemia Qualified Code(s): E78.2 - Mixed hyperlipidemia Plan: Patient continues on statin therapy without any side effect. Most recent lipid panel showing appropriate LDL. Goal LDL to remain below 130 (4) Anxiety: Code(s): F41.9 - Anxiety disorder, unspecified Plan: Patient does use lorazepam on a very limited p.r.n. basis with good effect on reducing his anxiety. He has been using [id number] sleeping aid from [employer] which has been helpful. (5) BPH w urinary obs/LUTS: Code(s): N40.1 - Benign prostatic hyperplasia with lower urinary tract symptoms; N13.8 - Other obstructive and reflux uropathy Plan: Still does report weak urinary stream and some nocturia. Urology recommended increasing tamsulosin daily dose to 0.8 mg daily. Orders: Orders Comprehensive [place]. Panel Fast Today I10 - Essential (primary) hypertension Hemoglobin A1c Today R73.01 - Impaired fasting glucose Lipid Panel Today E78.2 - Mixed hyperlipidemia Microalbumin, Random (w Creat) Today I10 - Essential (primary) hypertension Medications: Changed From tamsulosin 0.4 mg PO BEDTIME 90 days 90 caps 1RF N13.8 - Other obstructive and reflux uropathy, N20.0 - Calculus of kidney, N40.1 - Benign prostatic hyperplasia with lower urinary tract symptoms To tamsulosin 0.4 mg PO BID 90 days 180 caps 1RF N13.8 - Other obstructive and reflux uropathy, N20.0 - Calculus of kidney, N40.1 - Benign prostatic hyperplasia with lower urinary tract symptoms Coding Level of Care Code Est Pt Level 4 (21036) Diagnoses Primary hypertension I10 Hypertension type: primary hypertension Impaired fasting glucose R73.01 Mixed hyperlipidemia E78.2 Hyperlipidemia type: mixed hyperlipidemia Anxiety F41.9 BPH w urinary obs/LUTS N40.1; N13.8 Additional Codes ADDIE-7 Assessment Billing - ADDIE-7 Assessment Tool: ADDIE-7 Assessment 18899 ([id number])
[2023-03-31 11:36] VITALS: BP 130/80
== END 2023-03-31 11:36 | disposition home or self-care (01) ==
PROVIDERS: PCP Physician Assistant; Visit Provider Physician Assistant
DX: I10 Essential (primary) hypertension (principal); R73.01 Impaired fasting glucose; E78.2 Mixed hyperlipidemia; F41.9 Anxiety disorder, unspecified; N40.1 Benign prostatic hyperplasia with lower urinary tract symptoms; N13.8 Other obstructive and reflux uropathy
CPT/HCPCS: 99214

== ENCOUNTER 2023-08-07 06:16 | Outpatient (REF) | payer BC, SELFPAY ==
[2023-08-07 07:51] LABS: Estimated Average Glucose 126 mg/dL
[2023-08-07 08:11] LABS: Alanine Aminotransferase 33 U/L (0-40); Albumin Level 4.2 g/dL (3.5-5.0); Alkaline Phosphatase 78 U/L (39-117); Anion Gap 16 (12-20); Aspartate Amino Transferase 29 U/L (5-37); Bilirubin Total 0.7 mg/dL (0.0-1.0); Blood Urea Nitrogen 20 mg/dL (9-16); Calcium 9.6 mg/dL (8.4-10.2); Carbon Dioxide 20 mmol/L (22-29); Chloride 104 mmol/L (96-108); Cholesterol 173 mg/dL (<200); Estimated Glomerular Filt Rate > 60; Glucose Fasting 134 mg/dL (60-99); HDL Cholesterol 37 mg/dL (>40); LDL Cholesterol Calculated 71 mg/dL (<100); Potassium 4.1 mmol/L (3.3-5.1); Sodium 136 mmol/L (135-145); Total Protein 7.3 g/dL (6.5-8.0); Triglycerides 329 mg/dL (<150)
[2023-08-07 09:45] LABS: Creatinine Urine 177.27 mg/dL; Microalbum/Creatinine Ratio Ur 6.2 ug/mg cr (<30)
== END 2023-08-07 06:17 | disposition home or self-care (01) ==
LOC: HO.LAB 06:16
PROVIDERS: PCP Physician Assistant; Visit Provider Physician Assistant
DX: R73.01 Impaired fasting glucose (principal); I10 Essential (primary) hypertension; E78.2 Mixed hyperlipidemia
CPT/HCPCS: 36415; 80053; 80061; 82043; 82570; 83036

== ENCOUNTER 2023-08-11 08:45 | Outpatient (AMB) | payer BC, SELFPAY ==
--- NOTE | 2023-08-11 09:13 | MHC.PC.OV ---
Vital Signs 08/11/23 09:14 08/11/23 09:27 Height 5 ft 9 in Weight 200 lb 6 oz BMI 29.6 BP 148/82 H 127/75 Blood Pressure Location Lt brachial Position Sitting Pulse 66 Pulse Source Pulse Oximeter Pulse Oximetry (%) 97 Oxygen Delivery Method Room Air Intake Visit Reasons: Annual exam Housekeeping Director Required: No Accompanied by: Self / Same As Patient Allergies azithromycin [AZITHROMYCIN] Allergy (Intermediate, Verified 08/11/23 09:19) RASH prednisone Allergy (Unknown, Verified 08/11/23 09:19) rash Medication List - Last Reconciled 08/11/23 by Alcon Pan PA-C amlodipine 2.5 mg PO DAILY 90 days ibuprofen 800 mg PO Q8H PRN 15 days lisinopril 40 mg PO DAILY lorazepam 1 mg PO DAILY PRN 15 days metformin 500 mg PO DAILY 90 days simvastatin 20 mg PO DAILY tamsulosin 0.4 mg PO BID 90 days Tobacco use date assessed: 08/11/23 Fall risk assessment: No Falls in past year Last assessed Fall Risk: 08/11/23 Dental Screening Dental Screen Date: 08/11/23 Did you have a dental visit in the last 12 months?: Yes Did you have a dental problem in the last 6 months where you did not have access to dental care?: No Was dental information given to patient?: Patient has dentist HPI Annual exam HPI Details Patient is a 62-year-old male here today for an PE.? Patient has a past medical history significant for hypertension, generalized anxiety disorder, impaired glucose metabolism, nephrolithiasis, hyperlipidemia, BPH. Concern--> no concerns today .. Hypertension:? Patient's blood pressure today in office slightly elevated. Blood pressures at home reported at 120-130 systolic.. Upon recheck blood pressure is stablized. .? Will continue him on dose of lisinopril and amlodipine.? Otherwise denies any chest discomfort, shortness of breath, palpitations headaches or dizziness. .. Impaired glucose metabolism: Has been a chronic finding. He continues on metformin, Most recent fasting blood sugar 136. A1c is have been in prediabetic range. Advised on reducing his carbohydrates any agrees and understands. .. Hyperlipidemia:? Continues on statin therapy without any side effects.? Most recent lipid panel improved. He reports he has drastically reduced his alcohol intake. .. Generalized anxiety disorder:? He does use lorazepam on a very limited p.r.n. basis.? Otherwise he reports his anxiety has been well controlled Colon cancer screening: Done in [address] Dr. Phan, tubular adenoma repeat 5 years Vaccines: Up-to-date with COVID vaccine, tetanus vaccine, annual flu vaccine, considering shingles vaccine [facility] Medical History Abnormal stress ECG BPH w urinary obs/LUTS Nephrolithiasis Renal cyst HTN (hypertension) Surgical History No pertinent past surgical history Family History Father Medical history unknown Mother COPD (chronic obstructive pulmonary disease) Sister Arrhythmia Son Automobile accident Social History (Updated 08/11/23 @ 09:25 by Alcon Pan PA-C) Housing: House Alcohol intake: current Alcohol intake frequency: a few times a month Alcohol type: beer Patient Tobacco Use Status: Never used Tobacco e-Cigarette/Vaping Use: Never Used service: No Current occupational status: employed Current occupation: [employer] Cognitive needs: No Hearing needs: No Vision needs: No Questionnaire Thrive Questionnaire Date Thrive assessed: 03/31/23 ADDIE-7 AMB Questionnaire ADDIE-7 Date ADDIE - 7 assessed: 03/31/23 Source: Developed by Drs. Bo Lester, Jana Austin, Fili Louis and colleagues, with an educational tran from [employer]. Review of Systems Const Denies body aches, Denies chills, Denies excessive sweating, Denies fatigue, Denies fever(s) and Denies headache(s) Eyes Denies blurry vision ENT Denies dysphagia, Denies vertigo, Denies dizziness, Denies headache(s), Denies hearing loss and Denies tinnitus Card Denies chest pain, Denies chest pain with activity, Denies syncope, Denies irregular heart rhythm and Denies dyspnea Resp Denies chest congestion, Denies cough, Denies hemoptysis, Denies dyspnea and Denies wheezing GI Denies abdominal pain, Denies melena, Denies hematochezia, Denies coffee ground emesis, Denies dysphagia, Denies diarrhea, Denies nausea and Denies vomiting Denies difficulty urinating, Denies dysuria, Denies urinary frequency, Denies urinary hesitancy and Denies urinary urgency Musc Denies arthralgias, Denies limited range of motion, Denies muscle cramps and Denies muscle weakness Skin/Breast Denies rash and Denies skin ulcer Neuro Denies Abnormal speech present, Denies confusion, Denies vertigo, Denies dizziness, Denies syncope, Denies headache(s), Denies memory loss and Denies seizure-like activity Psych Denies anxiety, Denies confusion, Denies depression, Denies memory loss, Denies panic attacks and Denies paranoia Endo Denies excessive sweating, Denies fatigue, Denies flushing, Denies polydipsia and Denies polyuria Aller/Immun Denies wheezing Physical exam (Primary Care) Vital Signs: Last Vital Signs Pulse 66 08/11/23 09:14 BP 127/75 08/11/23 09:27 Pulse Ox 97 08/11/23 09:14 Oxygen Delivery Method Room Air 08/11/23 09:14 BMI result Body Mass Index 29.6 Tobacco/Smoking Status: Tobacco use Status Tobacco use date assessed 08/11/23 08/11/23 09:19 Patient Tobacco Use Status Never used Tobacco 08/11/23 09:25 e-Cigarette/Vaping Use Never Used 08/11/23 09:25 Thrive Assessment: Date of Thrive Assessment Date Thrive assessed 03/31/23 08/11/23 09:19 Const General: cooperative, comfortable, no acute distress, alert and awake; No confusion Orientation/consciousness: oriented to person, oriented to place, patient oriented x3 and No confusion HENMT Head: Yes normocephalic Ears: external ears normal and TM's normal bilaterally Face and sinus: No sinus tenderness Mouth: Normal oral and palatal mucosa present and tongue normal Teeth and gingiva: dentition normal and gingiva normal Throat: Yes posterior oropharynx normal, Yes tonsils normal and Yes uvula midline Eyes Conjunctivae: conjunctivae normal Sclerae: sclerae normal Pupils: Equal, round and reactive pupils present EOM: EOMs intact bilaterally Direct Ophthalmoscopy: No no photophobia Neck Neck: Yes no lymphadenopathy, No tender and Yes no JVD Thyroid: Thyroid normal Carotids: no bruits Chest Chest palpation & inspection: no tenderness Resp Effort & Inspection: normal respiratory effort, no audible wheezes, not labored and no stridor Auscultation: no crackles, no rales, no rhonchi and no wheezes Cardio Jugular venous distension: no JVD Rate: regular rate, not bradycardic and not tachycardic Rhythm: regular rhythm Bruits: no carotid bruits Peripheral pulses: Peripheral pulses 2+ throughout GI Inspection: Yes normal to inspection, No abdominal wall ecchymosis and No visible herniation Palpation (GI): Soft to palpation, nontender, no guarding, not rigid and No hepatosplenomegaly present Auscultation: normoactive bowel sounds General: Yes no CVA tenderness Back/Spine/Pelvis Back: no CVA tenderness and No back tenderness Cervical Spine: cervical ROM normal Thoracic/Lumbar Spine: thoracic and lumbar spine normal to inspection, straight leg raise negative bilaterally, No thoraco-lumbar ROM limited and No lumbar spinal tenderness Skin Lesions: no lesions Rashes: no rashes Wounds: no wounds Neuro General: oriented to person, oriented to place, patient oriented x3, CN's II-XI intact bilaterally and No confusion Cranial nerves: Yes Equal, round and reactive pupils present and Yes Normal accommodation reflex present Cognition (Neuro): normal cognition Speech: No Abnormal speech present Gait exam (Neuro): Normal gait present Motor exam (neuro): 5/5 motor strength present throughout Extrem Right upper extremity: full ROM; no cyanosis Left upper extremity: full ROM; no cyanosis Right lower extremity: no edema Left lower extremity: no edema Psych Appearance: grossly normal Mental Status: mental status grossly normal Affect: normal affect Attitude: cooperative Thought process: Normal thought process present Assessment and Plan Assessment & Plan (1) Annual physical exam: Code(s): Z00.00 - Encounter for general adult medical examination without abnormal findings (2) HTN (hypertension): Code(s): I10 - Essential (primary) hypertension Qualifiers: Hypertension type: primary hypertension Qualified Code(s): I10 - Essential (primary) hypertension Plan: Patient's blood pressure slightly elevated today in office. He reports that home blood pressures are 120s to 130 systolic. Otherwise denies any chest discomfort, shortness of breath, headaches or vision issues. Continues current dose of amlodipine and lisinopril with goal blood pressure remain below 140/90 (3) Impaired fasting glucose: Code(s): R73.01 - Impaired fasting glucose Plan: Patient continues on metformin 500 daily. Has been making lifestyle modifications and reduced his alcohol intake. A1c stable and not in diabetic range. Will continue metformin 500 mg daily with goal A1c to remain below 6.5 (4) HLD (hyperlipidemia): Code(s): E78.5 - Hyperlipidemia, unspecified Qualifiers: Hyperlipidemia type: mixed hyperlipidemia Qualified Code(s): E78.2 - Mixed hyperlipidemia Plan: Patient continues on statin therapy without any side effect. Most recent lipid panel showing appropriate LDL. Goal LDL to remain below 130 (5) Anxiety: Code(s): F41.9 - Anxiety disorder, unspecified Plan: Patient does use lorazepam on a very limited p.r.n. basis with good effect on reducing his anxiety. He has been using [id number] sleeping aid from [employer] which has been helpful. (6) BPH w urinary obs/LUTS: Code(s): N40.1 - Benign prostatic hyperplasia with lower urinary tract symptoms; N13.8 - Other obstructive and reflux uropathy Plan: Still does report weak urinary stream and some nocturia. He is due for repeat ultrasounds of his bladder and kidneys. (7) Adenomatous colon polyp: Code(s): D12.6 - Benign neoplasm of colon, unspecified Qualifiers: Colon location: unspecified part of colon Qualified Code(s): D12.6 - Benign neoplasm of colon, unspecified Plan: Needs repeat colonoscopy Orders: Orders Comprehensive [place]. Panel Fast Today I10 - Essential (primary) hypertension Prostate Specific Antigen Scr Today E78.2 - Mixed hyperlipidemia, Z12.5 - Encounter for screening for malignant neoplasm of prostate Complete Blood Count no Diff Today I10 - Essential (primary) hypertension Lipid Panel Today E78.2 - Mixed hyperlipidemia Referrals Gastroenterology Referral D12.6 - Benign neoplasm of colon, unspecified Patient Instructions: Goal: Blood pressure to be below 140/90, A1c to remain below 6.0 Barriers: Adherence to physical activity and healthy eating habits. Coding Level of Care Code Est Pt Prev Care 40-64y(54182) Diagnoses Annual physical exam Z00.00 Primary hypertension I10 Hypertension type: primary hypertension Impaired fasting glucose R73.01 Mixed hyperlipidemia E78.2 Hyperlipidemia type: mixed hyperlipidemia Anxiety F41.9 BPH w urinary obs/LUTS N40.1; N13.8 Adenomatous polyp of colon, unspecified part of colon D12.6 Colon location: unspecified part of colon
[2023-08-11 09:14] VITALS: BP 148/82; PULSE 66; O2SAT 97; BMI 29.6
[2023-08-11 09:27] VITALS: BP 127/75
== END 2023-08-11 09:38 | disposition home or self-care (01) ==
PROVIDERS: PCP Physician Assistant; Visit Provider Physician Assistant
DX: Z00.00 Encounter for general adult medical examination without abnormal findings (principal); I10 Essential (primary) hypertension; R73.01 Impaired fasting glucose; E78.2 Mixed hyperlipidemia; F41.9 Anxiety disorder, unspecified; N40.1 Benign prostatic hyperplasia with lower urinary tract symptoms; N13.8 Other obstructive and reflux uropathy; D12.6 Benign neoplasm of colon, unspecified
CPT/HCPCS: 99396

== ENCOUNTER 2023-08-20 10:14 | Outpatient (REF) | payer BC, SELFPAY ==
--- NOTE | ~2023-08-20 | US_ITS ---
EXAMINATION: US RETROPERITONEAL LIMITED (RENAL ONLY) CLINICAL INFORMATION: Cyst of kidney, acquired. COMPARISON: Renal ultrasound 08/19/2022 and 07/30/2021. CT abdomen and pelvis 01/27/2021. X-ray KUB 05/22/2016 and 07/08/2016. TECHNIQUE: Real-time imaging of the kidneys. Limited visualization due to bowel gas. FINDINGS: RIGHT KIDNEY: 12.8 x 6.4 x 5.7 cm (SAG x AP x TRV). No hydronephrosis. 0.4 cm lower pole calculus. Renal cortical thickness is normal. Limited visualization. LEFT KIDNEY: 12.1 x 4.8 x 3.8 cm (SAG x AP x TRV). No hydronephrosis. No renal calculi. Renal cortical thickness is normal. Limited visualization. Extrarenal pelvis. Redemonstration of cysts, largest 2.1 cm lower pole cyst with layering calcification characteristic of milk of calcium. There is no specific indication for additional imaging at this time. US/US renal BI IMPRESSION: No hydronephrosis. Right 0.4 cm calculus..
== END 2023-08-20 10:15 | disposition home or self-care (01) ==
LOC: HO.US 10:14
PROVIDERS: PCP Physician Assistant; Visit Provider Urology
DX: N28.1 Cyst of kidney, acquired (principal)
CPT/HCPCS: 76775

== ENCOUNTER 2023-10-09 08:32 | Outpatient (AMB) | payer BC, SELFPAY ==
--- NOTE | 2023-10-09 08:40 | A.OFFVIS_ITS ---
Intake Visit Reasons: 1Y Follow Up-US/PVR(set) Intake Note: Patient presents today for Follow Up on: BPH and Ultrasound Results Imaging Completed: 08/20/23 Urology Med: Tamsulosin Antibiotic Allergy: Azithromycin Blood Thinner: None PVR: 52ml's Ct Mri Technologist Required: No Accompanied by: Self / Same As Patient Allergies azithromycin [AZITHROMYCIN] Allergy (Intermediate, Verified 10/09/23 09:02) RASH prednisone Allergy (Unknown, Verified 10/09/23 09:02) rash Medication List - Last Reconciled 10/09/23 by Castillo Carvalho MD amlodipine 2.5 mg PO DAILY 90 days ibuprofen 800 mg PO Q8H PRN 15 days lisinopril 40 mg PO DAILY lorazepam 1 mg PO DAILY PRN 15 days metformin 500 mg PO DAILY 90 days simvastatin 20 mg PO DAILY tamsulosin 0.4 mg PO BID 90 days HPI Comments Details: Ochoa is a pleasant male. He is a patient of Dr. Pan. He is seen for the following urologic conditions - nephrolithiasis - lower urinary tract symptoms Yearly follow-up Remains on tamsulosin Encouraged activity. HbA1c 5.9. 15 minute brisk stroll after dinner. Working at [employer] Nephrolithiasis Initial presentation emergency room January 2021 Imaging - 02/06 CT scan mild diffuse prostatic enlargement with mural thickening representing chronic trabeculation and mural hypertrophy related to chronic urinary bladder outlet obstruction - 08/08 renal ultrasound small cyst left side 1.5 cm, no stones - 08/10 renal ultrasound question small 4 mm right stone. Consistent cyst. Initial voiding symptoms include weakness of stream. Good response tamsulosin Therapeutic plan - encourage fluids - surveillance imaging Lower urinary tract symptoms Improved with tamsulosin PSA 02/06 1.4, 02/08 1.5 PFSH Medical History (Updated 10/09/23 @ 09:03 by Castillo Carvalho MD) Nephrolithiasis Abnormal stress ECG BPH w urinary obs/LUTS Renal cyst HTN (hypertension) Surgical History No pertinent past surgical history Family History Father Medical history unknown Mother COPD (chronic obstructive pulmonary disease) Sister Arrhythmia Son Automobile accident Social History (Updated 08/11/23 @ 09:25 by Alcon Pan PA-C) Housing: House Alcohol intake: current Alcohol intake frequency: a few times a month Alcohol type: beer Patient Tobacco Use Status: Never used Tobacco e-Cigarette/Vaping Use: Never Used service: No Current occupational status: employed Current occupation: [employer] Cognitive needs: No Hearing needs: No Vision needs: No Office Procedures Post Void Residual Post Residual Void Post Void Residual (PVR): 52 [id number]-[id number] Void Residual by ultrasound Results AMB Urinalysis, Automated UA Leukoctes 0 Eve/uL Last Edit by Massage Envy on 10/09/23 09:07 UA Nitrite Last Edit by Massage Envy on 10/09/23 09:07 UA Urobilinogen 0.2 mg/dL Last Edit by Massage Envy on 10/09/23 09:07 UA Protein 0 mg/dL Last Edit by Massage Envy on 10/09/23 09:07 UA pH 6.0 Last Edit by Massage Envy on 10/09/23 09:07 UA Blood 25 Roddy/uL Last Edit by Massage Envy on 10/09/23 09:07 UA Specific [place] 1.010 Last Edit by Massage Envy on 10/09/23 09:07 UA Ketone Last Edit by Massage Envy on 10/09/23 09:07 UA Bilirubin 0 mg/dL Last Edit by Massage Envy on 10/09/23 09:07 UA Glucose 0 mg/dL Last Edit by Massage Envy on 10/09/23 09:07 Assessment & Plan Assessment & Plan (1) BPH w urinary obs/LUTS: Code(s): N40.1 - Benign prostatic hyperplasia with lower urinary tract symptoms; N13.8 - Other obstructive and reflux uropathy Category: Medical (2) Nephrolithiasis: Code(s): N20.0 - Calculus of kidney Category: Medical Plan Twelve month follow-up imaging Orders: Orders US renal BI 12 Months N13.8 - Other obstructive and reflux uropathy, N40.1 - Benign prostatic hyperplasia with lower urinary tract symptoms Patient Instructions: Imaging studies, laboratory and physical exam results were discussed and reviewed in detail. No major barriers to patient understanding were identified. An opportunity to ask questions regarding the treatment plan was provided. All questions were answered. The patient expressed understanding and agreement with the above treatment plan. The patient is aware they should contact our office by phone for worsening of their current condition or the appearance of new urologic symptoms. Compliance is encouraged with any medications and followup testing that is ordered. It is a privilege to participate in the urologic care of your patient. If you have any questions or concerns regarding treatment for the above conditions, or other urologic issues, please do not hesitate to contact me. The office tele phone contact is [phone]. This note is constructed using voice recognition software. While every effort has been made to ensure accuracy tree shear operator errors may have been included. Yours sincerely, Dr Castillo Carvalho MD, [facility] - Urology Providers of Expert, Compassionate Care for the Genitourinary System Coding Level of Care Code Est Pt Level 4 (32994) Diagnoses BPH w urinary obs/LUTS N40.1; N13.8 Nephrolithiasis N20.0 CPT Codes Post Residual Void - PVR CPT Code: 77386-Ycqs Void Residual by ultrasound ([id number])
== END 2023-10-09 09:03 | disposition home or self-care (01) ==
PROVIDERS: PCP Physician Assistant; Visit Provider Urology
DX: N40.1 Benign prostatic hyperplasia with lower urinary tract symptoms (principal); N13.8 Other obstructive and reflux uropathy; N20.0 Calculus of kidney; Z13.9 Encounter for screening, unspecified
CPT/HCPCS: 99214

== ENCOUNTER 2023-10-09 08:32 | Outpatient (REF) | payer BC, SELFPAY ==
[2023-10-09 16:22] LABS: Urine Cytology See Pathology rpt
== END 2023-10-09 08:33 | disposition home or self-care (01) ==
LOC: HO.LNP 08:32
PROVIDERS: PCP Physician Assistant; Visit Provider Urology
DX: R31.0 Gross hematuria (principal)
CPT/HCPCS: 51798; 81003; 88112

== ENCOUNTER 2023-12-02 09:15 | Day surgery (SDC) | payer MEDICARE, SELFPAY ==
[2023-11-27 15:01] VITALS: BMI 30.7
--- NOTE | 2023-11-28 10:14 | P.CONAN_ITS ---
Documented by User: Iman Vigil NP 11/28/23 10:15 HPI - Anesthesia Eval Consult details Narrative: 63yo M for Colonoscopy PMFSH Active Problems Active Problems: All Active Problems Adenomatous colon polyp (Acute) Annual physical exam (Acute) Impaired fasting glucose (Acute) HTN (hypertension) (Acute) Gross hematuria (Acute) HLD (hyperlipidemia) (Acute) Anxiety (Acute) Nephrolithiasis (Acute) BPH w urinary obs/LUTS (Acute) Renal cyst (Acute) Past Medical History Medical History White coat syndrome with hypertension Impaired glucose metabolism Elevated cholesterol Abnormal stress ECG BPH w urinary obs/LUTS Nephrolithiasis Renal cyst HTN (hypertension) Family History Family History Father Medical history unknown Mother COPD (chronic obstructive pulmonary disease) Sister Arrhythmia Son Automobile accident Surgical History Surgical History Hx of lithotripsy H/O colonoscopy Social History Social History (Updated 12/02/23 @ 11:58 by Jhoana Mims MD) Housing: House Alcohol intake: current Alcohol intake frequency: a few times a month Alcohol type: beer Patient Tobacco Use Status: Never used Tobacco e-Cigarette/Vaping Use: Never Used Substance Use Type: Marijuana service: No Current occupational status: employed Current occupation: [employer] Cognitive needs: No Hearing needs: No Vision needs: No Meds Allergies Allergy/AdvReac Type Severity Reaction Status Date / Time azithromycin [AZITHROMYCIN] Allergy Intermediate RASH Verified 10/09/23 09:02 prednisone Allergy Unknown rash Verified 10/09/23 09:02 Exam Height,Weight and Vital Signs: Height 5 ft 8.5 in Weight 92.986 kg Narrative Narrative: 2022 Stress echo is negative for ischemia Assessment and Plan Assessment Anesthesia Assessment: Chart Reviewed Documented by User: Jhoana Mims MD 12/02/23 11:59 [facility] Active Problems Active Problems: All Active Problems Adenomatous colon polyp (Acute) Annual physical exam (Acute) Impaired fasting glucose (Acute) HTN (hypertension) (Acute) Gross hematuria (Acute) HLD (hyperlipidemia) (Acute) Anxiety (Acute) Nephrolithiasis (Acute) BPH w urinary obs/LUTS (Acute) Renal cyst (Acute) ETOH 5beers 5 times a week Marijuana H/o abnormal stress EKG - stress echo 02/2022 - negative for ischemia Past Medical History Medical History White coat syndrome with hypertension Impaired glucose metabolism Elevated cholesterol Abnormal stress ECG BPH w urinary obs/LUTS Nephrolithiasis Renal cyst HTN (hypertension) Family History Family History Father Medical history unknown Mother COPD (chronic obstructive pulmonary disease) Sister Arrhythmia Son Automobile accident Family history of problems with anesthesia: No Surgical History Surgical History Hx of lithotripsy H/O colonoscopy History of Problems with Anesthesia: No Social History Social History (Updated 12/02/23 @ 11:58 by Jhoana Mims MD) Housing: House Alcohol intake: current Alcohol intake frequency: a few times a month Alcohol type: beer Patient Tobacco Use Status: Never used Tobacco e-Cigarette/Vaping Use: Never Used Substance Use Type: Marijuana service: No Current occupational status: employed Current occupation: [employer] Cognitive needs: No Hearing needs: No Vision needs: No Meds Allergies Allergy/AdvReac Type Severity Reaction Status Date / Time azithromycin [AZITHROMYCIN] Allergy Intermediate RASH Verified 10/09/23 09:02 prednisone Allergy Unknown rash Verified 10/09/23 09:02 Exam Height,Weight and Vital Signs: Height 5 ft 8.5 in Weight 92.986 kg Vital Signs Temp Pulse Resp BP Pulse Ox O2 Del Method 12/02/23 10:38 98.3 F 90 16 179/97 H 97 Room Air Pertinent Lab Results Pertinent Lab Results: Lab Results 12/02/23 Range/Units 10:48 POC Glucose 118 H (60-115) mg/dL Airway Mallampati Class: II TM Dist: >3cm Neck ROM: Full Loose/Missing/Broken Teeth: Yes (Missing tooth bottom left back. Denies broken or loose teeth) Heart: RRR Lungs: CTAB Assessment and Plan Assessment Anesthesia Assessment: Anesthesia Plan Discussed and Chart Reviewed Final Anesthetic Review Family History of Problems with Anesthesia: No History of Problems with Anesthesia: No NPO: Yes ASA Class: III Final Preanesthetic Review: No Changes in Pt Med Stat, Meds/Allgs Chart Reviewed, Consent Obtained/Reviewed and Anes Risks/Benef Reviewed Patient Risk: Intermediate Procedure Risk: Low Assessment/Block/Sedation in SS: Assess/Block/Sedation-SS Anesthetic Plan Anesthetic Plan: TIVA Disposition: Standard PACU
[2023-12-02 10:32] VITALS: BMI 29.2
[2023-12-02 10:38] VITALS: BP 179/97; PULSE 90; RESP 16; TEMP 36.8; O2SAT 97
[2023-12-02 10:52] LABS: Glucose, Whole Blood 118 mg/dL (60-115)
[2023-12-02] MEDS: Lactated Ringers 1,000 ML 100 ML IVCONT (10:55)
--- NOTE | 2023-12-02 11:29 | MHC.SHP ---
Pre-Procedural Eval Section A - 24 Hr Update-Section A only Date of Service: 12/02/23 The patient is an INPATIENT: No Changes since office visit: No Cold of Flu in the past 2 weeks, No New Medical Problems, No Changes in Medication and No Patient answered all questions The patient has been examined within 24 hours of the surgical procedure. The History & Physical has been completed within 30 days and I have reviewed it.: Yes Section B - Complete if H&P > 30 days Chief Complaint: screening Allergies: Allergies Allergy/AdvReac Type Severity Reaction Status Date / Time azithromycin [AZITHROMYCIN] Allergy Intermediate RASH Verified 10/09/23 09:02 prednisone Allergy Unknown rash Verified 10/09/23 09:02 Plan I have reviewed the history and physical and performed a pertinent physical examination on my patient. No changes have occurred unless specified. Time Spent With Patient Time: Total time managing care of this patient today ____ minutes.
[2023-12-02 12:09] VITALS: BP 126/79; PULSE 73; RESP 18; TEMP 36.1; O2SAT 95
[2023-12-02 12:24] VITALS: BP 123/75; PULSE 78; RESP 18; TEMP 36.1; O2SAT 100
--- NOTE | 2023-12-02 12:49 | OP_ITS ---
DATE OF SERVICE: 12/02/2023 SURGEON: Edi Phan MD INDICATIONS: Colon cancer screening and prior history of adenomatous colon polyps. PREOPERATIVE DIAGNOSIS: POSTOPERATIVE DIAGNOSIS: PROCEDURE PERFORMED: Colonoscopy to the terminal ileum. ESTIMATED BLOOD LOSS: COMPLICATIONS: ANESTHESIA: Monitored anesthesia care. ASSISTANTS: SPECIMENS: DESCRIPTION OF PROCEDURE: A history and physical was performed. The risks and benefits of the procedure were explained to the patient and informed consent was obtained. The patient was placed in the left lateral decubitus position. A digital rectal exam was performed and was found to be normal. The Olympus pediatric video colonoscope was introduced into the rectum and advanced to the cecum. The cecum was identified by transillumination, palpation, and identification of ileocecal valve. Examination was performed and the scope was removed. He tolerated the procedure well and was returned to recovery area in stable condition. FINDINGS: The terminal ileum was examined and appeared normal. The visualized colonic mucosa was normal. The quality of the prep was good. No polyps were identified. Retroflexed examination showed moderate-sized internal hemorrhoids. There was mild sigmoid diverticulosis. IMPRESSION: Normal colonoscopy. RECOMMENDATIONS: 1. Follow up as needed. 2. Repeat colonoscopy is recommended in 10 years for average-risk individuals. MD PITA Rizo/RALPH / [phone]
== END 2023-12-02 12:55 | disposition home or self-care (01) ==
PROVIDERS: PCP Physician Assistant; Visit Provider Internal Medicine Gastroenterology
PROC: 0DJD8ZZ Inspection of Lower Intestinal Tract, Via Natural or Artificial Opening Endoscopic (ICD-10-PCS; CPT 45378; principal; 2023-12-02 11:30)
DX: Z12.11 Encounter for screening for malignant neoplasm of colon (principal); Z86.0101 Personal history of adenomatous and serrated colon polyps; K57.30 Diverticulosis of large intestine without perforation or abscess without bleeding; K64.8 Other hemorrhoids; I10 Essential (primary) hypertension; E78.5 Hyperlipidemia, unspecified; N40.0 Benign prostatic hyperplasia without lower urinary tract symptoms; N28.1 Cyst of kidney, acquired; R73.02 Impaired glucose tolerance (oral); Z87.442 Personal history of urinary calculi; Z79.84 Long term (current) use of oral hypoglycemic drugs; Z79.899 Other long term (current) drug therapy; Z79.1 Long term (current) use of non-steroidal anti-inflammatories (NSAID)
CPT/HCPCS: G0105; 82947; J2003; J2704

== ENCOUNTER 2024-01-27 06:08 | Outpatient (REF) | payer MEDICARE, SELFPAY ==
[2024-01-27 07:24] LABS: Hematocrit 39.5 % (42.0-52.0); Hemoglobin 14.3 g/dl (14.0-18.0); Mean Corpuscular HGB Conc 36.2 g/dl (31.0-36.0); Mean Corpuscular Hemoglobin 31.6 pg (27.0-33.0); Mean Corpuscular Volume 87.4 fL (80.0-98.0); Mean Platelet Volume 9.4 fL (9.4-12.4); Platelet Count 217 X10*3/uL (160-400); Red Blood Count 4.52 X10*6/uL (4.60-5.80); Red Cell Distribution Width 11.8 % (11.0-16.0); White Blood Count 7.6 X10*3/uL (4.8-10.8)
[2024-01-27 07:49] LABS: Alanine Aminotransferase 45 U/L (0-40); Albumin Level 4.3 g/dL (3.5-5.0); Alkaline Phosphatase 80 U/L (39-117); Anion Gap 13 (12-20); Aspartate Amino Transferase 33 U/L (5-37); Bilirubin Total 0.5 mg/dL (0.0-1.0); Blood Urea Nitrogen 15 mg/dL (9-16); Calcium 9.2 mg/dL (8.4-10.2); Carbon Dioxide 22 mmol/L (22-29); Chloride 102 mmol/L (96-108); Cholesterol 169 mg/dL (<200); Estimated Glomerular Filt Rate > 60; Glucose Fasting 143 mg/dL (60-99); HDL Cholesterol 37 mg/dL (>40); LDL Cholesterol Calculated 68 mg/dL (<100); Potassium 4.1 mmol/L (3.3-5.1); Sodium 133 mmol/L (135-145); Total Protein 7.2 g/dL (6.5-8.0); Triglycerides 321 mg/dL (<150)
[2024-01-27 08:13] LABS: Prostate Specific Antigen Scr 1.94 ng/mL (<0.05-4.0)
--- OUTSIDE RECORDS SUMMARY | 2024-01-28 18:23 | XMS_ITS | Patient Health Record ---
Author Organization [facility] Address [address] [place] [address] Care Team Providers Care Electrical Products Engineer Name Role Phone Alcon Pan Primary Care Provider Unavailab Edi Lombardo Jr Unavailable ALLERGIES Allergen (clinical drug ingredient) Drug/Non Drug Allergy documented on EMR Reaction Allergy Type Onset Date Status PredniSONE Unknown Drug Allergy Active RESULTS Component Value Reference Range Notes Glucose, Whole Blood Reviewed date:12/02/2023 02:36:46 PM Interpretation: Performing Lab:[facility], [address] [place] [id number] Notes/Report: Glucose, Whole Blood 118 60-115 mg/dL METER # : [id number] REASON FOR REFERRAL No Information MEDICATIONS Medication SIG (Take, Route, Frequency, Duration) Notes Start Date End Date Status amLODIPine Besylate 2.5 MG 1 tablet Orally Once a day for 30 day(s) Active metFORMIN HCl 500 MG 1 tablet with a isaac l Orally Once a day for 30 day(s) Active Simvastatin 20 MG TAKE 1 TABLET IN THE EVENING ONCE A DAY Oral Once a day Active Lisinopril 40 MG 1 tablet Orally Once a day Active Ibuprofen 800 MG 1 tablet with food o r milk as needed Orally prn as needed Active Tamsulosin HCl 0.4 MG as directed Orally Active IMMUNIZATIONS Vaccine Route Administration Date Status Comme nts Influenza Unknown 01/07/2023 Administered Influenza Unknown 07/09/2018 Refused SOCIAL HISTORY Tobacco Use: Social History Observation Description Date Details (start date - stop date) Never Smoker NA - NA Sex Assigned At : Social History Observation Description Sex Assigned At Unknown Tobacco Use/Smoking Question Answer Notes Patient is a nonsmoker Alcohol Screen Question Answer Notes Did you have a drink contain ing alcohol in the past year? Yes How often did you have a dri nk containing alcohol in the past year? 2 to 3 times a week (3 points) How many drinks did you have on a typical day when you were drinking in the past year? 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 (Z79.84) Active confirmed 549227752847390 VITAL SIGNS Temperature 98.4 degrees Fahrenheit 11/17/2023 Blood pressure diastolic 00 mm Hg 11/17/2023 Height 68.5 in 11/17/2023 Blood pressure systolic 000 mm Hg 11/17/2023 Weight 205 lbs 11/17/2023 BMI 30.71 kg/m2 11/17/2023 Encounters Encounter Location Date Provider Diagnosis [facility] [place] Out[place] [address] [place], [place] [phone] 12/02/2023 Edi Phan Jr Colon cancer screening Z12.11 [facility] [address] [place] [address] 11/17/2023 Edi Phan Jr Colon cancer screening Z12.11 ; group home (current) use of oral hypoglycemic drugs Z79.84 and Encounter for long-term (current) use of NSAIDs Z79.1 ASSESSMENTS Encounter Date Diagnosis Assessment Notes Treatment Notes Treatment Clinical Notes 12/02/2023 Colon cancer screening (ICD-10 - Z12.11) 11/17/2023 Colon cancer screening (ICD-10 - Z12.11) A-fib material was printed 11/17/2023 group home (current) use of oral hypoglycemic drugs (ICD-10 - Z79.84) 11/17/2023 Encounter for long-term (current) use of NSAIDs (ICD-10 - Z79.1) PLAN OF TREATMENT Future Test Test Name Order Date COLONOSCOPY 07/09/2018 COLONOSCOPY 11/17/2023 Insurance Providers Payer Name Payer Address Payer Phone Subscriber Number Group Number Insured Name Patient Relationship to Insured Coverage Start Date Coverage End Date [facility] [address] TY MELCHOR [id number] ANGELINA RHOADES Self - patient is the insured MEDICAL (GENERAL) HISTORY Medical History History ICD Code Nephrolithiasis Kidney cysts BPH Hypertension Colon polyps, colonoscopy 12/05, tubular adenoma, five-year followup Hyperlipidemia Surgical History Surgery Date(Month/Year)
--- OUTSIDE RECORDS SUMMARY | 2024-01-28 18:23 | XMS_ITS ---
Author Organization [facility] Address [address] [place] [address] Care Team Providers Care Business Intelligence Consultant Name Role Phone Alcon Pan Primary Care Provider UnavailEdi Lopez Jr Unavailable ALLERGIES Allergen (clinical drug ingredient) Drug/Non Drug Allergy documented on EMR Reaction Allergy Type Onset Date Status PredniSONE Unknown Drug Allergy Active REASON FOR VISIT Patient presents today for a colon screening MEDICATIONS Medication SIG (Take, Route, Frequency, Duration) [...] as needed Orally prn as needed Active metFORMIN HCl 500 MG 1 tablet with a isaac l Orally Once a day for 30 day(s) Active Tamsulosin HCl 0.4 MG as directed Orally Active SOCIAL HISTORY Tobacco Use: Social History Observation [...] Problem Colon cancer screening (Z12.11) Active confirmed 663846287 Problem Encounter for long-term (current) use of NSAIDs (Z79.1) Active confirmed 448841629706707 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 (Z79.84) Active confirmed 701083844533667 VITAL SIGNS BMI 30.71 kg/m2 11/17/2023 Blood pressure systolic 000 mm Hg 11/17/19 24 Blood pressure diastolic 00 mm Hg 024 Height 68.5 in 11/17/2023 Temperature 98.4 degrees Fahrenheit 11/17/19 24 Weight 205 lbs 11/17/2023 Encounters Encounter Location Date Provider Diagnosis [facility] [address] [place] [address] 11/17/2023 Edi Phan Jr Colon cancer screening Z12.11 ; residential (current) use of oral hypoglycemic drugs Z79.84 and Encounter for long-term (current) use of NSAIDs Z79.1 ASSESSMENTS Encounter Date Diagnosis Assessment Notes Treatment Notes Treatment Clinical Notes 11/17/2023 Colon cancer screening (ICD-10 - Z12.11) A-fib material was printed 11/17/2023 intermodal customer service (current) use of oral hypoglycemic drugs (ICD-10 - Z79.84) 11/17/2023 Encounter for long-term (current) use of NSAIDs (ICD-10 - Z79.1) PLAN OF TREATMENT Treatment Notes Assessment Notes Colon cancer screening A-fib material wa s printed Future Test Test Name Order Date COLONOSCOPY 11/17/2023 Next Appt Details Follow Up: prn, Reason: Progress Notes * Examination Category Sub-Category Detail Notes General Examination GENERAL APPEARANCE: in no ac chenega distress HEAD: normocephalic EYES: sclera non-icteric NECK/THYROID: no lymphadenopathy HEART: S1, S2 normal, no mu rmurs CHEST: normal shape and exp ansion LUNGS: clear to auscultatio n bilaterally ABDOMEN: soft, nontender, non distended, bowel sounds present, no organomegaly SKIN: anicteric EXTREMITIES: no clubbing, cyanosi s, or edema PSYCH: cognitive function i ntact ORAL CAVITY: mucosa moist
--- OUTSIDE RECORDS SUMMARY | 2024-01-28 18:23 | XMS_ITS ---
Author Organization [facility] Address [address] [place] [address] Care Team Providers Care Scale Manager Name Role Phone Alcon Pan Primary Care Provider Unavailab Edi Lombardo Jr Unavailable REASON FOR VISIT screening Encounters Encounter Location Date Provider Diagnosis [facility] [place] [address] [place], [place] [id number] 12/02/2023 Edi Phan Jr Colon cancer screening Z12.11 ASSESSMENTS Encounter Date Diagnosis Assessment Notes Treatment Notes Treatment Clinical Notes 12/02/2023 Colon cancer screening (ICD-10 - Z12.11) PLAN OF TREATMENT No Information
== END 2024-01-27 06:09 | disposition home or self-care (01) ==
LOC: HO.LAB 06:08
PROVIDERS: PCP Physician Assistant; Visit Provider Physician Assistant
DX: I10 Essential (primary) hypertension (principal); Z12.5 Encounter for screening for malignant neoplasm of prostate; E78.2 Mixed hyperlipidemia
CPT/HCPCS: 36415; 80053; 80061; 84153; 85027

== ENCOUNTER 2024-02-02 08:26 | Outpatient (AMB) | payer MEDICARE, SELFPAY ==
--- OUTSIDE RECORDS SUMMARY | 2024-02-02 08:30 | XMS_ITS ---
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) Active confirmed [id number] VITAL SIGNS BMI 30.71 kg/m2 11/17/2023 Blood pressure systolic 000 mm Hg 11/17/19 24 Blood pressure diastolic 00 mm Hg 024 Height 68.5 in 11/17/2023 Temperature 98.4 degrees Fahrenheit 11/17/19 24 Weight 205 lbs 11/17/2023 Encounters Encounter Location Date Provider Diagnosis [facility] [address] [place] [address] 11/17/2023 Edi Phan Jr Colon cancer screening Z12.11 ; long-term (current) use of oral hypoglycemic drugs Z79.84 and Encounter for long-term (current) use of NSAIDs Z79.1 ASSESSMENTS Encounter Date Diagnosis Assessment Notes Treatment Notes Treatment Clinical Notes 11/17/2023 Colon cancer screening (ICD-10 - Z12.11) A-fib material was printed 11/17/2023 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
--- OUTSIDE RECORDS SUMMARY | 2024-02-02 08:30 | XMS_ITS ---
Author Organization [facility] Address [address] [place] [address] Care Team Providers Care Last Turner Name Role Phone Alcon Pan Primary Care Provider Unavailab Edi Lombardo Jr Unavailable REASON FOR VISIT screening Encounters Encounter Location Date Provider Diagnosis [facility] [place] Out[place] [address] [place], [place] [phone] 12/02/2023 Edi Phan Jr Colon cancer screening Z12.11 ASSESSMENTS Encounter Date Diagnosis Assessment Notes Treatment Notes Treatment Clinical Notes 12/02/2023 Colon cancer screening (ICD-10 - Z12.11) PLAN OF TREATMENT No Information
--- OUTSIDE RECORDS SUMMARY | 2024-02-02 08:30 | XMS_ITS | Patient Health Record ---
Author Organization [facility] Address [address] [place] [address] Care Team Providers Care Senior Licensing Manager Name Role Phone Alcon Pan Primary Care Provider Unavailab Edi Lombardo Jr Unavailable ALLERGIES Allergen (clinical drug ingredient) Drug/Non Drug Allergy documented on EMR Reaction Allergy Type Onset Date Status PredniSONE Unknown Drug Allergy Active RESULTS Component Value Reference Range Notes Glucose, Whole Blood Reviewed date:12/02/2023 02:36:46 PM Interpretation: Performing Lab:[facility], [address] [place] [id number] Notes/Report: Glucose, Whole Blood 118 60-115 mg/dL METER # : [id number] REASON FOR REFERRAL No Information MEDICATIONS Medication [...] Problem Colon cancer screening (Z12.11) Active confirmed [id number] Problem Encounter for other preprocedural examination (Z01.818) Active confirmed 056445753 Problem Encounter for long-term (current) use of NSAIDs (Z79.1) Active confirmed [id number] Problem Long-term use of aspirin therapy (Z79.82) Active confirmed 272310416 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) Active confirmed [id number] VITAL SIGNS Temperature 98.4 degrees Fahrenheit 11/17/2023 Blood pressure diastolic 00 mm Hg 11/17/2023 Height 68.5 in 11/17/2023 Blood pressure systolic 000 mm Hg 11/17/2023 Weight 205 lbs 11/17/2023 BMI 30.71 kg/m2 11/17/2023 Encounters Encounter Location Date Provider Diagnosis [facility] [place] [address] [place], [place] [phone] 12/02/2023 Edi Phan Jr Colon cancer screening Z12.11 [facility] [address] [place] [address] 11/17/2023 Edi Phan Jr Colon cancer screening [...] Insured Coverage Start Date Coverage End Date [facility] [id number] TY MELCHOR [id number] ANGELINA RHOADES Self - patient is the insured MEDICAL (GENERAL) HISTORY Medical History History ICD Code Nephrolithiasis Kidney cysts BPH Hypertension Colon polyps, colonoscopy 12/05, tubular adenoma, five-year followup Hyperlipidemia Surgical History Surgery Date(Month/Year)
[2024-02-02 08:31] VITALS: BP 152/80; PULSE 82; O2SAT 96; BMI 30.8
--- NOTE | 2024-02-02 08:31 | MHC.PC.OV ---
Vital Signs 02/02/24 08:31 Height 5 ft 8.5 in Weight 205 lb 6 oz BMI 30.8 BP 152/80 H Blood Pressure Location Lt brachial Position Sitting Pulse 82 Pulse Source Pulse Oximeter Pulse Oximetry (%) 96 Oxygen Delivery Method Room Air Intake Visit Reasons: f/u HTN/ HLD Hat Maker Required: No Accompanied by: Self / Same As Patient Allergies azithromycin [AZITHROMYCIN] Allergy (Intermediate, Verified 02/02/24 08:46) RASH prednisone Allergy (Unknown, Verified 02/02/24 08:46) rash Medication List - Last Reconciled 02/02/24 by Alcon Pan PA-C amlodipine 2.5 mg PO DAILY 90 days ibuprofen 800 mg PO Q8H PRN 15 days lisinopril 40 mg PO DAILY metformin 500 mg PO DAILY 90 days simvastatin 20 mg PO DAILY tamsulosin 0.4 mg PO BID 90 days Tobacco use date assessed: 02/02/24 Fall risk assessment: No Falls in past year Last assessed Fall Risk: 02/02/24 Dental Screening Dental Screen Date: 02/02/24 Did you have a dental visit in the last 12 months?: No Did you have a dental problem in the last 6 months where you did not have access to dental care?: No Was dental information given to patient?: No HPI f/u HTN/ HLD HPI Details Patient is a 63-year-old male here today for follow-up visit.? Patient has a past medical history significant for hypertension, generalized anxiety disorder, impaired glucose metabolism, nephrolithiasis, hyperlipidemia, BPH. .. Hypertension:? Patient's blood pressure today in office slightly elevated. He does note that is blood pressures at home have been 140s to 150 systolic.. .? Will continue him on dose of lisinopril and amlodipine.? Otherwise denies any chest discomfort, shortness of breath, palpitations headaches or dizziness. PLAN: Will increase his amlodipine to 5 mg for better blood pressure control .. Impaired glucose metabolism: Has been a chronic finding. He continues on metformin, Most recent fasting blood sugar 140. A1c is have been in prediabetic range. Advised on reducing his carbohydrates and alcohol intake any agrees and understands. .. Hyperlipidemia:? Continues on statin therapy without any side effects.? Most recent lipid panel improved. Particularly his triglycerides remain borderline high.. He reports he has drastically reduced his alcohol intake. .. Generalized anxiety disorder:? He does use lorazepam on a very limited p.r.n. basis.? Otherwise he reports his anxiety has been well controlled. Laboratory Tests 08/02/22 01/31/23 01/31/23 06:37 07:15 07:18 RBC 4.71 Hgb Creatinine 0.80 Fasting Glucose 122 H Hemoglobin A1c % 5.9 ALT Triglycerides 271 194 H Cholesterol 161 LDL Cholesterol, C alc 73 82 PSA Screen 1.52 Urine Microalbumin 8.0 08/07/23 08/07/23 01/27/24 06:25 06:35 06:38 RBC 4.52 L Hgb 14.3 Creatinine 0.84 0.88 Fasting Glucose 134 H 143 H Hemoglobin A1c % 6.0 ALT 33 45 H Triglycerides 329 H 321 H Cholesterol LDL Cholesterol, C alc 71 PSA Screen 1.94 Urine Microalbumin 11.0 PFSH Medical History White coat syndrome with hypertension Impaired glucose metabolism Elevated cholesterol Abnormal stress ECG BPH w urinary obs/LUTS Nephrolithiasis Renal cyst HTN (hypertension) Surgical History Hx of lithotripsy H/O colonoscopy Family History Father Medical history unknown Mother COPD (chronic obstructive pulmonary disease) Sister Arrhythmia Son Automobile accident Social History Housing: House Alcohol intake: current Alcohol intake frequency: a few times a month Alcohol type: beer Patient Tobacco Use Status: Never used Tobacco e-Cigarette/Vaping Use: Never Used Substance Use Type: Marijuana service: No Current occupational status: employed Current occupation: [employer] Cognitive needs: No Hearing needs: No Vision needs: No Questionnaire PHQ-9 Over the last 2 weeks, how often have you been bothered by any of the following problems? 1. Little interest or pleasure in doing things: not at all 2. Feeling down, depressed, or hopeless: not at all 3. Trouble falling or staying asleep, or sleeping too much: not at all 4. Feeling tired or having little energy: not at all 5. Poor appetite or overeating: not at all 6. Feeling bad about yourself - or that you are a failure or have let yourself or your family down: not at all 7. Trouble concentrating on things, such as reading the newspaper or watching television: not at all 8. Moving or speaking so slowly that other people could have noticed. Or the opposite - being so fidgety or restless that you have been moving around a lot more than usual: not at all 9. Thoughts that you would be better off or of hurting yourself in some way: not at all Total score: 0 Depression Screening Interpretation: Negative Depression Screening Done: Yes 69286 - PHQ-9 Billing: Yes Source: Developed by Drs. Bo Lester, Jana Austin, Fili Louis and colleagues, with an educational tran from [employer]. Thrive Questionnaire Date Thrive assessed: 02/02/24 I am a: Patient What is your living situation today?: I have a steady place to live Within the past 12 months, did the food you bought not last and you didn't have the money to get more?: Never true Within the past 12 months, did you worry whether your food would run out before you got money to buy more?: Never true Do you have trouble paying for medicines?: No Do you have trouble getting transportation to medical appointments?: No Do you have trouble paying your heating and electricity bill?: No Do you have trouble taking care of your child, family member or friend?: No Do you have trouble with day-to-day activities such as bathing, preparing meals, shopping, managing finances, etc.?: No Are you currently unemployed and looking for a job?: No Are you interested in more education?: No Please select the resources that you would like help with: None Currently or been in a relationship where the following occur: No concerns reported THRIVE Score: 0 AUDIT C Alcohol Use Questionnaire (AUDIT-C) 2. How many drinks containing alcohol do you have on a typical day when you are drinking?: 3 or 4 3. How often do you have six or more drinks on one occasion?: Less than monthly Total Score: 2 ADDIE-7 AMB Questionnaire ADDIE-7 Date ADDIE - 7 assessed: 02/02/24 Feeling nervous, anxious, or on edge: 0 = Not at all Not being able to stop or control worryin = Not at all Worrying too much about different things: 0 = Not at all Trouble relaxin = Not at all Being so restless that it is hard to sit still: 0 = Not at all Becoming easily annoyed or irritable: 0 = Not at all Feeling afraid as if something awful might happen: 0 = Not at all Total ADDIE-7 score (0-4 normal; 5-9 mild; 10-14 moderate; 15-21 severe): 0 Source: Developed by Drs. Bo Lester, Jana Austin, Fili Louis and colleagues, with an educational tran from [employer]. Review of Systems Const Denies headache(s) Eyes Denies loss of vision ENT Denies vertigo, Denies dizziness, Denies headache(s) and Denies sore throat Card Denies chest pain, Denies leg edema and Denies lightheadedness Resp Denies cough, Denies hemoptysis and Denies wheezing GI Denies abdominal pain, Denies melena, Denies constipation, Denies diarrhea and Denies vomiting Denies dysuria, Denies urinary frequency and Denies urinary urgency Musc Denies arthralgias, Denies joint swelling, Denies numbness and Denies tingling Neuro Denies Abnormal speech present, Denies behavioral changes, Denies vertigo, Denies dizziness, Denies headache(s), Denies loss of vision, Denies memory loss, Denies numbness and Denies tingling Psych Denies anxiety, Denies behavioral changes, Denies depression, Denies memory loss and Denies panic attacks Rory/Lymph Denies easy bleeding and Denies easy bruising Aller/Immun Denies wheezing Physical exam (Primary Care) Vital Signs: Last Vital Signs Pulse 82 02/02/24 08:31 BP 152/80 H 02/02/24 08:31 Pulse Ox 96 02/02/24 08:31 Oxygen Delivery Method Room Air 02/02/24 08:31 BMI result Body Mass Index 30.8 Tobacco/Smoking Status: Tobacco use Status Tobacco use date assessed 02/02/24 02/02/24 08:37 Patient Tobacco Use Status Never used Tobacco 02/02/24 08:37 e-Cigarette/Vaping Use Never Used 02/02/24 08:37 PHQ-9: PHQ-9 Score PHQ-9: Total score 0 02/02/24 09:00 Depression Screening Interpretation: Negative Thrive Assessment: Date of Thrive Assessment Date Thrive assessed 02/02/24 02/02/24 08:37 Currently or been in a relationship where the following occur: No concerns reported Const General: healthy appearing, no acute distress, alert and awake Nutritional Appearance: well nourished Orientation/consciousness: oriented to person, oriented to place and oriented to time HENMT Ears: TM's normal bilaterally General nose exam: Normal nasal mucous membranes and turbinates present Eyes Conjunctivae: conjunctivae normal Sclerae: sclerae normal Pupils: Equal, round and reactive pupils present Neck Neck: Yes no lymphadenopathy and Yes no JVD Thyroid: Thyroid normal Carotids: no bruits Resp Effort & Inspection: normal respiratory effort and not tachypneic Auscultation: no crackles, no rales, no rhonchi and no wheezes Cardio Rate: regular rate Rhythm: regular rhythm Heart sounds: no murmurs and normal S1 and S2 GI Palpation (GI): Soft to palpation, nontender, no hepatomegaly and no splenomegaly Auscultation: normal bowel sounds Skin General skin exam: no rashes or lesions noted and dry skin Neuro General: oriented to person, oriented to place and oriented to time Cranial nerves: Yes Equal, round and reactive pupils present Speech: No Abnormal speech present Gait exam (Neuro): Normal gait present Motor exam (neuro): no tremor noted Extrem Right upper extremity: full ROM Left upper extremity: full ROM Right lower extremity: full ROM; no edema Left lower extremity: full ROM; no edema Psych Mental Status: mental status grossly normal Speech and movement: Normal speech and movement present Affect: normal affect Attitude: cooperative Thought process: Normal thought process present Immunizations pneumoc 20-zhen conj-dip cr(PF) 0.5 mL IM syringe Performing Provider: Alcon aPn PA-C Performing [facility] [place] [facility] Administered by: FORD Gibbs on 02/02/24 09:00 Dose Route Admin Location Dispensed Lot Number Expiration Date [facility] [employer] Counter Person 0.5 mL IM Left Deltoid 0.5 mL [id number] 04/17/25 0201-3242-96 [employer] VIS Given Date VIS Provided VIS Publication Date 02/02/24 Single Vaccine 21 Eligibility Eligibility Date Funding Source Not [facility] Eligible 02/02/24 Private Coding Level of Care Code Est Pt Level 4 (61724) Diagnoses Primary hypertension I10 Hypertension type: primary hypertension Impaired fasting glucose R73.01 Mixed hyperlipidemia E78.2 Hyperlipidemia type: mixed hyperlipidemia Additional Codes PHQ-9 - 13801 - PHQ-9 Billing: Yes ([id number]) Assessment & Plan Assessment & Plan (1) HTN (hypertension): Code(s): I10 - Essential (primary) hypertension Category: Medical Qualifiers: Hypertension type: primary hypertension Qualified Code(s): I10 - Essential (primary) hypertension Plan: Patient's blood pressure elevated today in office. Will increase his amlodipine dose to 5 mg for better blood pressure control. Advised to continue monitoring blood pressure pressure to be below 140/90 consistently. (2) Impaired fasting glucose: Code(s): R73.01 - Impaired fasting glucose Category: Medical Plan: Most recent fasting blood sugar slightly above 140. He does understand that he needs to make changes in his diet particularly low-carbohydrate diet. Will continue to fasting blood sugar. A1c is has been in prediabetic range thus continues on metformin. Will check A1c at next lab draw. (3) HLD (hyperlipidemia): Code(s): E78.5 - Hyperlipidemia, unspecified Category: Medical Qualifiers: Hyperlipidemia type: mixed hyperlipidemia Qualified Code(s): E78.2 - Mixed hyperlipidemia Plan: Most recent lipid panel showing elevated triglycerides though total Cholesterol and LDL are stable. He will make some changes in his lifestyle and make dietary changes Orders: Orders Comprehensive [place]. Panel Fast Today E78.2 - Mixed hyperlipidemia Microalbumin, Random (w Creat) Today I10 - Essential (primary) hypertension Lipid Panel Today E78.2 - Mixed hyperlipidemia Hemoglobin A1c Today R73.01 - Impaired fasting glucose Pneumococcal 20 Immunization Today R73.01 - Impaired fasting glucose, Z23 - Encounter for immunization Medications: New amlodipine 5 mg PO DAILY 90 tabs 1RF R73.01 - Impaired fasting glucose
== END 2024-02-02 09:04 | disposition home or self-care (01) ==
PROVIDERS: PCP Physician Assistant; Visit Provider Physician Assistant
DX: I10 Essential (primary) hypertension (principal); R73.01 Impaired fasting glucose; E78.2 Mixed hyperlipidemia; Z23 Encounter for immunization

== ENCOUNTER → 2024-02-02 08:26 | Outpatient (BNVA) | payer MEDICARE, SELFPAY | PROVIDERS: PCP Physician Assistant; Visit Provider Physician Assistant | DX: I10 Essential (primary) hypertension (principal); E78.2 Mixed hyperlipidemia; R73.01 Impaired fasting glucose; Z23 Encounter for immunization | CPT/HCPCS: 90471; 90677; 96127; 99212 ==

== ENCOUNTER 2024-08-05 06:04 | Outpatient (REF) | payer MEDICARE, SELFPAY ==
--- OUTSIDE RECORDS SUMMARY | 2023-12-02 07:30 | XMS_ITS ---
Author Organization [facility] Address [address] [place] [address] Care Team Providers Care Data Warehouse Developer Name Role Phone Alcon Pan Primary Care Provider Unavailab Edi Lombardo Jr REASON FOR VISIT screening Encounters Encounter Location Date Provider Diagnosis [facility] [place] [address] [place], [place] [phone] 12/02/2023 Edi Phan Jr Colon cancer screening Z12.11 Assessments Encounter Date Diagnosis (ICD Code) Assessment Notes Treatment Notes Treatment Clinical Notes Section Notes 12/02/2023 Colon cancer screening (ICD-10 - Z12.11) Plan Of Treatment No Information Progress Notes * ANGELINA RHOADESDOB: [birth year] (63 yo M)Acc No.[id number]:12/02/2023 COLON WITH MAC Patient: ANGELINA KATE Provider: Griselda Phan MD :1960 A ge:63 Y S ex:Male Date:12/02/2023 Address:[address] [place], [place] [phone] Pcp:Alcon Pan Subjective: * Chief Complaints: * [...] 1 Generated for Raquel gaytan/Aisha/Hunter on: 0 08/05/2024 06:06 AM EDT
[2024-08-05 07:35] LABS: Estimated Average Glucose 134 mg/dL; Hemoglobin A1c % 6.3 % (<6.0); Total Hemoglobin (HGBA1C) 3676.3002 umol/L
[2024-08-05 07:44] LABS: Alanine Aminotransferase 34 U/L (0-40); Albumin Level 4.6 g/dL (3.5-5.0); Alkaline Phosphatase 80 U/L (39-117); Anion Gap 13 (12-20); Aspartate Amino Transferase 34 U/L (5-37); Bilirubin Total 0.7 mg/dL (0.0-1.0); Blood Urea Nitrogen 16 mg/dL (9-16); Calcium 9.4 mg/dL (8.4-10.2); Carbon Dioxide 24 mmol/L (22-29); Chloride 103 mmol/L (96-108); Cholesterol 156 mg/dL (<200); Estimated Glomerular Filt Rate > 60; Glucose Fasting 132 mg/dL (60-99); HDL Cholesterol 36 mg/dL (>40); LDL Cholesterol Calculated 62 mg/dL (<100); Potassium 4.1 mmol/L (3.3-5.1); Sodium 136 mmol/L (135-145); Total Protein 7.3 g/dL (6.5-8.0); Triglycerides 293 mg/dL (<150)
[2024-08-05 08:07] LABS: Creatinine Urine 100.02 mg/dL; Microalbum/Creatinine Ratio Ur 6.9 ug/mg cr (<30)
== END 2024-08-05 06:05 | disposition home or self-care (01) ==
LOC: HO.LAB 06:04
PROVIDERS: PCP Physician Assistant; Visit Provider Physician Assistant
DX: E78.2 Mixed hyperlipidemia (principal); I10 Essential (primary) hypertension; R73.01 Impaired fasting glucose
CPT/HCPCS: 36415; 80053; 80061; 82043; 82570; 83036

== ENCOUNTER 2024-08-12 08:46 | Outpatient (AMB) | payer MEDICARE, SELFPAY ==
--- OUTSIDE RECORDS SUMMARY | 2023-12-02 07:30 | XMS_ITS ---
Author Organization [facility] Address [address] [place] [address] Care Team Providers Care Twist Maker Name Role Phone Alcon Pan Primary Care Provider Unavailab Edi Lombardo Jr [phone] REASON FOR VISIT screening Encounters Encounter Location Date Provider Diagnosis [facility] [place] [address] [place], [place] [phone] 12/02/2023 Edi Phan Jr Colon cancer screening Z12.11 Assessments Encounter Date Diagnosis (ICD Code) Assessment Notes Treatment Notes Treatment Clinical Notes Section Notes 12/02/2023 Colon cancer screening (ICD-10 - Z12.11) Plan Of Treatment No Information Progress Notes * ANGELINA RHOADESDOB: [birth year] (63 yo M)Acc No.[id number]:12/02/2023 COLON WITH MAC Patient: ANGELINA KATE Provider: Griselda Phan MD :1960 A ge:63 Y S ex:Male Date:12/02/2023 Address:[address] [place], [place] [phone] Pcp:Alcon Pan Subjective: * Chief Complaints: * 1 . Screening. * Medical History: Objective: * Vitals: Assessment: * Assessment: 1. C olon cancer screening - Z12.11 (Primary) Plan: * Treatment: * Procedure Codes: 4 5378 DIAGNOSTIC COLONOSCOPY * * The named appointment provid er may or may not be the originator of this progress note, and it is not deemed complete until electronically signed by the appointment provider. Sign off status: Pending * Provider: Griselda Phan MD Date: 1 Generated for Raquel gaytan/Aisha/Hunter on: 0 08/12/2024 09:19 AM EDT
--- NOTE | 2024-08-12 08:53 | A.OFFPC_ITS ---
Vital Signs 08/12/24 08:54 Height 5 ft 8.5 in Weight 198 lb 4 oz BMI 29.7 BP 144/70 H Blood Pressure Location Lt brachial Position Sitting Pulse 72 Pulse Source Pulse Oximeter Temp 97.4 F Temp Source Temporal Artery Scan Pulse Oximetry (%) 96 Oxygen Delivery Method Room Air Intake Visit Reasons: pe Allergies azithromycin (AZITHROMYCIN) Allergy (Intermediate, Verified 08/12/24 09:09) RASH prednisone Allergy (Unknown, Verified 08/12/24 09:09) rash Medication List - Last Reconciled 08/12/24 by Alcon Pan PA-C amlodipine 5 mg PO DAILY ibuprofen 800 mg PO Q8H PRN 15 days lisinopril 40 mg PO DAILY metformin 500 mg PO DAILY 90 days simvastatin 20 mg PO DAILY tamsulosin 0.4 mg PO BID 90 days Tobacco use date assessed: 02/02/24 Dental Screening Dental Screen Date: 02/02/24 HPI pe HPI Details Patient is a 63-year-old male here today for routine annual physical. ? Patient has a past medical history significant for hypertension, generalized anxiety disorder, impaired glucose metabolism, nephrolithiasis, hyperlipidemia, BPH. .. Hypertension:? Patient's blood pressure today in office slightly elevated. He does note that is blood pressures at home have been 130s systolic.. .? Will continue him on dose of lisinopril and amlodipine.? Otherwise denies any chest discomfort, shortness of breath, palpitations headaches or dizziness. .. Impaired glucose metabolism: Has been a chronic finding. He continues on metformin, Most recent fasting blood sugar 140. A1c is have been in prediabetic range- 6.3. Advised on reducing his carbohydrates and alcohol intake any agrees and understands. .. Hyperlipidemia:? Continues on statin therapy without any side effects.? Most recent lipid panel improved. Particularly his triglycerides remain borderline high.. He reports he has drastically reduced his alcohol intake. .. Generalized anxiety disorder:? He does use lorazepam on a very limited p.r.n. basis.? Otherwise he reports his anxiety has been well controlled. Colon cancer screening: Colonoscopy [place] [address] Phan, repeat 10 years Vaccines: Up-to-date with COVID vaccine, tetanus vaccine, annual flu vaccine, considering shingles vaccine Laboratory Tests 08/07/23 01/27/24 08/05/24 06:25 06:38 06:23 Fasting Glucose 143 H 132 H Hemoglobin A1c % 6.0 6.3 H Triglycerides 321 H 293 H PFSH Medical History White coat syndrome with hypertension Impaired glucose metabolism Elevated cholesterol Abnormal stress ECG BPH w urinary obs/LUTS Nephrolithiasis Renal cyst HTN (hypertension) Surgical History Hx of lithotripsy H/O colonoscopy Family History Father Medical history unknown Mother COPD (chronic obstructive pulmonary disease) Sister Arrhythmia Son Automobile accident Social History (Updated 08/12/24 @ 09:15 by Alcon Pan PA-C) Housing: House Alcohol intake: current Alcohol intake frequency: a few times a month Alcohol type: beer Patient Tobacco Use Status: Never used Tobacco e-Cigarette/Vaping Use: Never Used Substance Use Type: Marijuana service: No Current occupational status: employed Current occupation: [employer] Cognitive needs: No Hearing needs: No Vision needs: No Questionnaire PHQ-9 Over the last 2 weeks, how often have you been bothered by any of the following problems? 1. Little interest or pleasure in doing things: not at all 2. Feeling down, depressed, or hopeless: not at all 3. Trouble falling or staying asleep, or sleeping too much: not at all 4. Feeling tired or having little energy: not at all 5. Poor appetite or overeating: not at all 6. Feeling bad about yourself - or that you are a failure or have let yourself or your family down: not at all 7. Trouble concentrating on things, such as reading the newspaper or watching television: not at all 8. Moving or speaking so slowly that other people could have noticed. Or the opposite - being so fidgety or restless that you have been moving around a lot more than usual: not at all 9. Thoughts that you would be better off or of hurting yourself in some way: not at all Total score: 0 Depression Screening Interpretation: Negative Depression Screening Done: Yes 98683 - PHQ-9 Billing: Yes Source: Developed by Drs. Jana Dumont, Fili Louis and colleagues, with an educational tran from [employer]. Thrive Questionnaire Date Thrive assessed: 08/12/24 I am a: Patient What is your living situation today?: I have a steady place to live Within the past 12 months, did the food you bought not last and you didn't have the money to get more?: Never true Within the past 12 months, did you worry whether your food would run out before you got money to buy more?: Never true Do you have trouble paying for medicines?: No Do you have trouble getting transportation to medical appointments?: No Do you have trouble paying your heating and electricity bill?: No Do you have trouble taking care of your child, family member or friend?: No Do you have trouble with day-to-day activities such as bathing, preparing meals, shopping, managing finances, etc.?: No Are you currently unemployed and looking for a job?: No Are you interested in more education?: No Please select the resources that you would like help with: None Currently or been in a relationship where the following occur: No concerns reported THRIVE Score: 0 AUDIT C Alcohol Use Questionnaire (AUDIT-C) 1. How often do you have a drink containing alcohol?: 2-3 times a week 2. How many drinks containing alcohol do you have on a typical day when you are drinking?: 3 or 4 3. How often do you have six or more drinks on one occasion?: Less than monthly Total Score: 5 ADDIE-7 AMB Questionnaire ADDIE-7 Date ADDIE - 7 assessed: 08/12/24 Feeling nervous, anxious, or on edge: 0 = Not at all Not being able to stop or control worryin = Not at all Worrying too much about different things: 0 = Not at all Trouble relaxin = Not at all Being so restless that it is hard to sit still: 0 = Not at all Becoming easily annoyed or irritable: 0 = Not at all Feeling afraid as if something awful might happen: 0 = Not at all Total ADDIE-7 score (0-4 normal; 5-9 mild; 10-14 moderate; 15-21 severe): 0 Source: Developed by Jana Tomlin Kurt Kroenke and colleagues, with an educational tran from [employer]. ADDIE-7 Assessment Billing ADDIE-7 Assessment Tool: ADDIE-7 Assessment 58518 Physical exam (Primary Care) Vital Signs: Last Vital Signs Temp 97.4 F 08/12/24 08:54 Pulse 72 08/12/24 08:54 BP 144/70 H 08/12/24 08:54 Pulse Ox 96 08/12/24 08:54 Oxygen Delivery Method Room Air 08/12/24 08:54 BMI result Body Mass Index 29.7 Tobacco/Smoking Status: Tobacco use Status Tobacco use date assessed 02/02/24 08/12/24 09:01 Patient Tobacco Use Status Never used Tobacco 08/12/24 09:01 e-Cigarette/Vaping Use Never Used 08/12/24 09:01 PHQ-9: PHQ-9 Score PHQ-9: Total score 0 08/12/24 09:01 Depression Screening Interpretation: Negative Thrive Assessment: Date of Thrive Assessment Date Thrive assessed 08/12/24 08/12/24 09:01 Currently or been in a relationship where the following occur: No concerns reported Coding Level of Care Code Est Pt Prev Care >65y(22029) Diagnoses Annual physical exam Z00.00 Primary hypertension I10 Hypertension type: primary hypertension Impaired fasting glucose R73.01 Mixed hyperlipidemia E78.2 Hyperlipidemia type: mixed hyperlipidemia Additional Codes ADDIE-7 Assessment Billing - ADDIE-7 Assessment Tool: ADDIE-7 Assessment 82359 ([id number]) PHQ-9 - 39952 - PHQ-9 Billing: Yes ([id number]) Assessment & Plan Assessment & Plan (1) Annual physical exam: Code(s): Z00.00 - Encounter for general adult medical examination without abnormal f indings Category: Medical Plan: as per HPI (2) HTN (hypertension): Code(s): I10 - Essential (primary) hypertension Category: Medical Qualifiers: Hypertension type: primary hypertension Qualified Code(s): I10 - Essential (primary) hypertension Plan: Patient's blood pressure elevated today in office. He reports that home blood pressures have been stable 120s to 130 systolic.. We have increased his amlodipine to 5 mg. Advised to continue monitoring blood pressure pressure to be below 140/90 consistently. (3) Impaired fasting glucose: Code(s): R73.01 - Impaired fasting glucose Category: Medical Plan: Most recent fasting blood sugar slightly elevated, A1c is 6.3. He does unders tand he has been in a prediabetic range. We considered increasing his metformin to 1000 mg daily though will hold off on this and work on dietary modifications. A1c is has been in prediabetic range thus continues on metformin. (4) HLD (hyperlipidemia): Code(s): E78.5 - Hyperlipidemia, unspecified Category: Medical Qualifiers: Hyperlipidemia type: mixed hyperlipidemia Qualified Code(s): E78.2 - Mixed hyperlipidemia Plan: Most recent lipid panel showing improved triglycerides and appropriate total cholesterol and LDL. Goal LDL is to remain below 100 He will make some changes in his lifestyle and make dietary changes Patient Instructions: Goal: A1c to remain below 6.5, blood pressure to be below 140/90 Barriers: Adherence to physical activity and healthy eating habits
[2024-08-12 08:54] VITALS: BP 144/70; PULSE 72; TEMP 36.3; O2SAT 96; BMI 29.7
== END 2024-08-12 09:33 | disposition home or self-care (01) ==
LOC: HO.HMCH 08:47
PROVIDERS: PCP Physician Assistant; Visit Provider Physician Assistant
DX: Z00.00 Encounter for general adult medical examination without abnormal findings (principal); I10 Essential (primary) hypertension; R73.01 Impaired fasting glucose; E78.2 Mixed hyperlipidemia

== ENCOUNTER → 2024-08-12 08:46 | Outpatient (BNVA) | payer MEDICARE, SELFPAY | PROVIDERS: PCP Physician Assistant; Visit Provider Physician Assistant | DX: Z00.00 Encounter for general adult medical examination without abnormal findings (principal); I10 Essential (primary) hypertension; F41.1 Generalized anxiety disorder; R73.01 Impaired fasting glucose; N40.0 Benign prostatic hyperplasia without lower urinary tract symptoms; E78.2 Mixed hyperlipidemia | CPT/HCPCS: 96127; 99397 ==

== ENCOUNTER 2024-09-27 11:12 | Outpatient (REF) | payer MEDICARE, SELFPAY ==
--- OUTSIDE RECORDS SUMMARY | 2023-12-02 07:30 | XMS_ITS ---
Author Organization [facility] Address [address] [place] [address] Care Team Providers Care Sports Specialist Name Role Phone Alcon Pan Primary Care Provider Unavailab Edi Lombardo Jr [phone] REASON FOR VISIT screening Encounters Encounter Location Date Provider Diagnosis [facility] [place] [address] [place], [place] [phone] 12/02/2023 Edi Phan Jr Colon cancer screening Z12.11 Assessments Encounter Date Diagnosis (ICD Code) Assessment Notes Treatment Notes Treatment Clinical Notes Section Notes 12/02/2023 Colon cancer screening (ICD-10 - Z12.11) Plan Of Treatment No Information Progress Notes * ANGELINA RHOADESDOB: [birth year] (63 yo M)Acc No.[id number]:12/02/2023 COLON WITH MAC Patient: ANGELINA KATE Provider: Griselda Phan MD :1960 A ge:63 Y S ex:Male Date:12/02/2023 Address:[address] [place], [place] [phone] Pcp:Alcon Pan Subjective: * Chief Complaints: * [...] 1 Generated for Raquel gaytan/Aisha/Hunter on: 0 09/27/2024 11:56 AM EDT
--- NOTE | ~2024-09-27 | US_ITS ---
CLINICAL HISTORY: N40.1 - Benign prostatic hyperplasia with lower urinary tract symptoms US Renal Comparison: US/SR - US KIDNEY BILATERAL - 08/20/23 10:22 EDT Findings: Right kidney normal size and echotexture, 12.8 cm length. Left kidney normal size and echotexture, 12 cm length. 1.7 x 1.3 x 1.9 cm lower pole cyst with calcification. 8 x 4 x 5 mm cyst of the midpole with calcification. No hydronephrosis of either kidney. Normal color Doppler IMPRESSION: Redemonstration of left renal cysts with calcification. This document has been electronically signed by: Melvin Burnham MD on 09/27/2024 12:47:38
== END 2024-09-27 11:13 | disposition home or self-care (01) ==
LOC: HO.US 11:12
PROVIDERS: PCP Physician Assistant; Visit Provider Urology
DX: N40.1 Benign prostatic hyperplasia with lower urinary tract symptoms (principal); N13.8 Other obstructive and reflux uropathy
CPT/HCPCS: 76775

== ENCOUNTER → 2024-09-27 11:14 | Outpatient (BNV) | payer MEDICARE, SELFPAY | PROVIDERS: PCP Physician Assistant; Visit Provider Nuclear Medicine | DX: N40.1 Benign prostatic hyperplasia with lower urinary tract symptoms (principal); N28.1 Cyst of kidney, acquired | CPT/HCPCS: 76775 ==

== ENCOUNTER 2024-10-07 08:45 | Outpatient (AMB) | payer MEDICARE, SELFPAY ==
--- OUTSIDE RECORDS SUMMARY | 2023-12-02 07:30 | XMS_ITS ---
Author Organization [facility] Address [address] [place] [address] Care Team Providers Care Geographic Information Systems Director Name Role Phone Alcon Pan Primary Care Provider Unavailab Edi Lombardo Jr REASON FOR VISIT screening Encounters Encounter Location Date Provider Diagnosis [facility] [place] [address] [place], [place] [phone] 12/02/2023 Edi Phan Jr Colon cancer screening Z12.11 Assessments Encounter Date Diagnosis (ICD Code) Assessment Notes Treatment Notes Treatment Clinical Notes Section Notes 12/02/2023 Colon cancer screening (ICD-10 - Z12.11) Plan Of Treatment No Information Progress Notes * ANGELINA RHOADESDOB: [birth year] (63 yo M)Acc No.[id number]:12/02/2023 COLON WITH MAC Patient: ANGELINA KATE Provider: Griselda Phan MD :1960 A ge:63 Y S ex:Male Date:12/02/2023 Address:[address] [place], [place] [phone] Pcp:Alcon Pan Subjective: * Chief Complaints: * [...] Phan MD Date: 1 Generated for Raquel gaytan/Aisha/Elissaitting on: 0 10/07/2024 09:43 AM EDT
--- NOTE | 2024-10-07 08:46 | A.OFFVIS_ITS ---
Intake Visit Reasons: 1y/US Intake Note: Patient presents today for 1 yr Follow Up Imaging Completed: 09/27/2024 Urology Med: Tamsulosin Antibiotic Allergy: Azithromycin Blood Thinner: None PVR: 45 mls Hospice Manager Required: No Accompanied by: Self / Same As Patient Allergies azithromycin (AZITHROMYCIN) Allergy (Intermediate, Verified 10/07/24 08:56) RASH prednisone Allergy (Unknown, Verified 10/07/24 08:56) rash HPI Comments Details: Ochoa is a pleasant male. He is a patient of Dr. Pan. He is seen for the following urologic conditions - nephrolithiasis - lower urinary tract symptoms Yearly follow-up Remains on tamsulosin PVR 45 HbA1c rise from 5.9-6.3, high triglycerides Working at home Nephrolithiasis Initial presentation emergency room January 2021 Imaging - 02/06 CT scan mild diffuse prostatic enlargement with mural thickening representing chronic trabeculation and mural hypertrophy related to chronic urinary bladder outlet obstruction - 08/08 renal ultrasound small cyst left side 1.5 cm, no stones - 08/10 renal ultrasound question small 4 mm right stone. Consistent cyst. - 08/11 renal ultrasound bilateral cysts, calcification on left side Initial voiding symptoms include weakness of stream. Good response tamsulosin Therapeutic plan - encourage fluids - surveillance imaging Lower urinary tract symptoms Improved with tamsulosin PSA 02/06 1.4, 02/08 1.5, . 1.9 PFSH Medical History White coat syndrome with hypertension Impaired glucose metabolism Elevated cholesterol Abnormal stress ECG BPH w urinary obs/LUTS Nephrolithiasis Renal cyst HTN (hypertension) Surgical History Hx of lithotripsy H/O colonoscopy Family History Father Medical history unknown Mother COPD (chronic obstructive pulmonary disease) Sister Arrhythmia Son Automobile accident Social History (Updated 08/12/24 @ 09:15 by Alcon Pan PA-C) Housing: House Alcohol intake: current Alcohol intake frequency: a few times a month Alcohol type: beer Patient Tobacco Use Status: Never used Tobacco e-Cigarette/Vaping Use: Never Used Substance Use Type: Marijuana service: No Current occupational status: employed Current occupation: [employer] Cognitive needs: No Hearing needs: No Vision needs: No Review of Systems Const Denies chills and Denies fever(s) Card Reports no additional complaints and Denies syncope Resp Denies cough GI Denies abdominal pain and Denies heartburn Reports as per HPI and Denies change in libido Neuro Denies syncope Psych Denies change in libido Endo Denies change in libido Physical Exam Const General: cooperative, healthy appearing, comfortable and no acute distress Orientation/consciousness: patient oriented x3 HEENT Face and sinus: Yes normal facial exam Mouth: moist mucous membranes Neck Neck: Yes normal visual inspection, Yes full ROM and Yes trachea midline Chest Chest palpation & inspection: normal inspection of the chest Resp Effort & Inspection: normal respiratory effort, able to speak in complete sentences and no respiratory distress GI Inspection: Yes normal to inspection Back/Spine/Pelvis Cervical Spine: normal cervical lordosis Thoracic/Lumbar Spine: thoracic and lumbar spine normal to inspection Skin General skin exam: no rashes or lesions noted Neuro General: patient oriented x3, gait normal, tone normal and moves all extremities Extrem General: Yes normal to inspection and Yes capillary refill normal Assessment & Plan Assessment & Plan (1) Renal cyst: Code(s): N28.1 - Cyst of kidney, acquired Category: Medical (2) Nephrolithiasis: Code(s): N20.0 - Calculus of kidney Category: Medical Plan Twelve month follow-up repeat imaging Orders: Orders US renal BI 12 Months N28.1 - Cyst of kidney, acquired Patient Instructions: This note is constructed using voice recognition software. While every effort has been made to ensure accuracy records and information manager errors may have been included. Imaging studies, laboratory and physical exam results were discussed and reviewed in detail. No major barriers to patient understanding were identified. An opportunity to ask questions regarding the treatment plan was provided. All questions were answered. The patient expressed understanding and agreement with the above treatment plan. The patient is aware they should contact our office by phone for worsening of their current condition or the appearance of new urologic symptoms. Compliance is encouraged with any medications and followup testing that is ordered. It is a privilege to participate in the urologic care of your patient. If you have any questions or concerns regarding treatment for the above conditions, or other urologic issues, please do not hesitate to contact me. The office telephone contact is [phone]. Sincerely, Dr Castillo Carvalho MD, [facility] - Urology Compassionate Specialist Care for the Genitourinary System Coding Level of Care Code Est Pt Level 4 (83544) Diagnoses Renal cyst N28.1 Nephrolithiasis N20.0
== END 2024-10-07 09:33 | disposition home or self-care (01) ==
LOC: HO.HUSH 08:46
PROVIDERS: PCP Physician Assistant; Visit Provider Urology
DX: N28.1 Cyst of kidney, acquired (principal); N20.0 Calculus of kidney; Z13.9 Encounter for screening, unspecified
CPT/HCPCS: 99214

== ENCOUNTER → 2024-10-07 08:45 | Outpatient (BNVA) | payer MEDICARE, SELFPAY | PROVIDERS: PCP Physician Assistant; Visit Provider Urology | DX: N40.1 Benign prostatic hyperplasia with lower urinary tract symptoms (principal); N13.8 Other obstructive and reflux uropathy; N28.1 Cyst of kidney, acquired; N20.0 Calculus of kidney | CPT/HCPCS: 51798; 81003; 99212 ==

== ENCOUNTER 2025-02-03 06:27 | Outpatient (REF) | payer MEDICARE, SELFPAY ==
[2025-02-03 07:20] LABS: Hematocrit 40.8 % (42.0-52.0); Hemoglobin 14.1 g/dl (14.0-18.0); Mean Corpuscular HGB Conc 34.6 g/dl (31.0-36.0); Mean Corpuscular Hemoglobin 30.3 pg (27.0-33.0); Mean Corpuscular Volume 87.7 fL (80.0-98.0); NRBC Abs Auto 0.000 X10*3/uL (0.0-0.012); NRBC Pct Auto 0.0 /100WBC (0.0-0.2); Platelet Count 234 X10*3/uL (160-400); Red Blood Count 4.65 X10*6/uL (4.60-5.80); White Blood Count 7.7 X10*3/uL (4.8-10.8)
[2025-02-03 07:50] LABS: Alanine Aminotransferase 27 U/L (0-40); Albumin Level 4.7 g/dL (3.5-5.0); Alkaline Phosphatase 88 U/L (39-117); Anion Gap 13 (12-20); Aspartate Amino Transferase 27 U/L (5-37); Blood Urea Nitrogen 16 mg/dL (9-16); Calcium 9.4 mg/dL (8.4-10.2); Carbon Dioxide 25 mmol/L (22-29); Chloride 103 mmol/L (96-108); Cholesterol 166 mg/dL (<200); Estimated Glomerular Filt Rate > 60; HDL Cholesterol 36 mg/dL (>40); Potassium 4.5 mmol/L (3.3-5.1); Sodium 136 mmol/L (135-145); Total Protein 7.5 g/dL (6.5-8.0); Triglycerides 211 mg/dL (<150)
== END 2025-02-03 06:28 | disposition home or self-care (01) ==
LOC: HO.LAB 06:27
PROVIDERS: PCP Physician Assistant; Visit Provider Physician Assistant
DX: R73.01 Impaired fasting glucose (principal); E78.2 Mixed hyperlipidemia; Z12.5 Encounter for screening for malignant neoplasm of prostate; N40.1 Benign prostatic hyperplasia with lower urinary tract symptoms; N13.8 Other obstructive and reflux uropathy
CPT/HCPCS: 36415; 80053; 80061; 83036; 84153; 85027

== ENCOUNTER 2025-02-07 09:47 | Outpatient (AMB) | payer MEDICARE, SELFPAY ==
--- NOTE | 2025-02-07 09:50 | A.OFFPC_ITS ---
Vital Signs 02/07/25 09:55 Height 5 ft 8 in Weight 205 lb BMI 31.2 BP 152/84 H Blood Pressure Location Lt brachial Position Sitting Respiration 18 Pulse 48 L Pulse Source Pulse Oximeter Temp 97.0 F Temp Source Temporal Artery Scan Pulse Oximetry (%) 96 Oxygen Delivery Method Room Air Intake Visit Reasons: f/u HTN/ HLD/ IGM Retrieval Specialist Required: No Accompanied by: Self / Same As Patient Allergies azithromycin (AZITHROMYCIN) Allergy (Intermediate, Verified 02/07/25 10:10) RASH prednisone Allergy (Unknown, Verified 02/07/25 10:10) rash Medication List - Last Reconciled 02/07/25 by Alcon Pan PA-C amlodipine 5 mg PO DAILY ibuprofen 800 mg PO Q8H PRN 15 days lisinopril 40 mg PO DAILY metformin 500 mg PO DAILY 90 days simvastatin 20 mg PO DAILY tamsulosin 0.4 mg PO BID 90 days Tobacco use date assessed: 02/07/25 Fall risk assessment: No Falls in past year Last assessed Fall Risk: 02/07/25 Dental Screening Dental Screen Date: 02/07/25 Did you have a dental visit in the last 12 months?: No Did you have a dental problem in the last 6 months where you did not have access to dental care?: No Was dental information given to patient?: Patient has dentist HPI f/u HTN/ HLD/ IGM HPI Details Patient is a 64-year-old male here today for a follow-up visit ? Patient has a past medical history significant for hypertension, generalized anxiety disorder, impaired glucose metabolism, nephrolithiasis, hyperlipidemia, BPH. .. Hypertension:? Patient's blood pressure today in office elevated. He does note that is blood pressures at home have been 130s systolic.. .? Will continue him on dose of lisinopril and amlodipine.? Otherwise denies any chest discomfort, shortness of breath, palpitations headaches or dizziness. .. Type 2 diabetes : Most recent A1c at 6.7 and diabetic range. Has noted weight gain since last office visit. He reports stopping alcohol consumption on November 17, after which he initially lost 5 pounds but subsequently regained it and more after he started drinking non-alcoholic beers. He notes an increased appetite and increased food intake, particularly carbohydrates like pizza, since quitting alcohol. His weight has increased from 198 lbs in July to 205 lbs at today's visit. .. Hyperlipidemia:? Continues on statin therapy without any side effects.? Most recent lipid panel improved. Particularly his triglycerides remain borderline high.. He reports he has drastically reduced his alcohol intake. .. Generalized anxiety disorder:? He does use lorazepam on a very limited p.r.n. basis.? Otherwise he reports his anxiety has been well controlled. Laboratory Tests 08/05/24 02/03/25 06:23 06:41 RBC 4.65 Fasting Glucose 132 H 145 H Hemoglobin A1c % 6.3 H 6.7 H Cholesterol 166 LDL Cholesterol, C alc 62 88 PSA Screen 2.90 [facility] Medical History White coat syndrome with hypertension Impaired glucose metabolism Elevated cholesterol Abnormal stress ECG BPH w urinary obs/LUTS Nephrolithiasis Renal cyst HTN (hypertension) Surgical History Hx of lithotripsy H/O colonoscopy Family History Father Medical history unknown Mother COPD (chronic obstructive pulmonary disease) Sister Arrhythmia Son Automobile accident Social History Housing: House Alcohol intake: current Alcohol intake frequency: a few times a month Alcohol type: beer Patient Tobacco Use Status: Never used Tobacco e-Cigarette/Vaping Use: Never Used Substance Use Type: Marijuana service: No Current occupational status: employed Current occupation: [employer] Cognitive needs: No Hearing needs: No Vision needs: No Questionnaire Thrive Questionnaire Date Thrive assessed: 08/10/24 I am a: Patient What is your living situation today?: I have a steady place to live Within the past 12 months, did the food you bought not last and you didn't have the money to get more?: Never true Within the past 12 months, did you worry whether your food would run out before you got money to buy more?: Never true Do you have trouble paying for medicines?: No Do you have trouble getting transportation to medical appointments?: No Do you have trouble paying your heating and electricity bill?: No Do you have trouble taking care of your child, family member or friend?: No Do you have trouble with day-to-day activities such as bathing, preparing meals, shopping, managing finances, etc.?: No Are you currently unemployed and looking for a job?: No Are you interested in more education?: No Please select the resources that you would like help with: None Currently or been in a relationship where the following occur: No concerns reported THRIVE Score: 0 ADDIE-7 AMB Questionnaire ADDIE-7 Date ADDIE - 7 assessed: 08/12/24 Source: Developed by Drs. Bo Lester, Jana Austin, Fili Louis and colleagues, with an educational tran from [email or web address]. Review of Systems Const Denies headache(s) Eyes Denies loss of vision ENT Denies vertigo, Denies dizziness, Denies headache(s) and Denies sore throat Card Denies chest pain, Denies leg edema and Denies lightheadedness Resp Denies cough, Denies hemoptysis and Denies wheezing GI Denies abdominal pain, Denies melena, Denies constipation, Denies diarrhea and Denies vomiting Denies dysuria, Denies urinary frequency and Denies urinary urgency Musc Denies arthralgias, Denies joint swelling, Denies numbness and Denies tingling Neuro Denies Abnormal speech present, Denies behavioral changes, Denies vertigo, Denies dizziness, Denies headache(s), Denies loss of vision, Denies memory loss, Denies numbness and Denies tingling Psych Denies anxiety, Denies behavioral changes, Denies depression, Denies memory loss and Denies panic attacks Rory/Lymph Denies easy bleeding and Denies easy bruising Aller/Immun Denies wheezing Physical exam (Primary Care) Vital Signs: Last Vital Signs Temp 97.0 F 02/07/25 09:55 Pulse 48 L 02/07/25 09:55 Resp 18 02/07/25 09:55 BP 152/84 H 02/07/25 09:55 Pulse Ox 96 02/07/25 09:55 Oxygen Delivery Method Room Air 02/07/25 09:55 BMI result Body Mass Index 31.2 BMI Assessment/Plan discussion: High BMI High, discussed plan: lifestyle, weight reduction, dietary and physical activity Tobacco/Smoking Status: Tobacco use Status Tobacco use date assessed 02/07/25 02/07/25 10:00 Patient Tobacco Use Status Never used Tobacco 02/07/25 09:51 e-Cigarette/Vaping Use Never Used 02/07/25 09:51 Thrive Assessment: Date of Thrive Assessment Date Thrive assessed 08/10/24 02/07/25 09:51 Currently or been in a relationship where the following occur: No concerns reported Const General: healthy appearing, no acute distress, alert and awake Nutritional Appearance: well nourished Orientation/consciousness: oriented to person, oriented to place and oriented to time HENMT Ears: TM's normal bilaterally General nose exam: Normal nasal mucous membranes and turbinates present Eyes Conjunctivae: conjunctivae normal Sclerae: sclerae normal Pupils: Equal, round and reactive pupils present Neck Neck: Yes no lymphadenopathy and Yes no JVD Thyroid: Thyroid normal Carotids: no bruits Resp Effort & Inspection: normal respiratory effort and not tachypneic Auscultation: no crackles, no rales, no rhonchi and no wheezes Cardio Rate: regular rate Rhythm: regular rhythm Heart sounds: no murmurs and normal S1 and S2 GI Palpation (GI): Soft to palpation, nontender, no hepatomegaly and no splenomegaly Auscultation: normal bowel sounds Skin General skin exam: no rashes or lesions noted and dry skin Neuro General: oriented to person, oriented to place and oriented to time Cranial nerves: Yes Equal, round and reactive pupils present Speech: No Abnormal speech present Gait exam (Neuro): Normal gait present Motor exam (neuro): no tremor noted Extrem Right upper extremity: full ROM Left upper extremity: full ROM Right lower extremity: full ROM; no edema Left lower extremity: full ROM; no edema Psych Mental Status: mental status grossly normal Speech and movement: Normal speech and movement present Affect: normal affect Attitude: cooperative Thought process: Normal thought process present Coding Level of Care Code Est Pt Level 4 (37943) Diagnoses Type 2 diabetes mellitus without complication, without long-term current use of insulin E11.9 Diabetes mellitus intermediate insulin use: without intermediate use Diabetes mellitus complication status: without complication Primary hypertension I10 Hypertension type: primary hypertension Mixed hyperlipidemia E78.2 Hyperlipidemia type: mixed hyperlipidemia Class 1 obesity E66.811 Assessment & Plan Assessment & Plan (1) DMII (diabetes mellitus, type 2): Code(s): E11.9 - Type 2 diabetes mellitus without complications Category: Medical Qualifiers: Diabetes mellitus ferry terminal agent insulin use: without intermediate use Diabetes mellitus complication status: without complication Qualified Code(s): E11.9 - Type 2 diabetes mellitus without complications Plan: The plan for management of type 2 diabetes includes increasing metformin from 500 mg daily to 500 mg twice daily, to be taken with breakfast and dinner. A new prescription for this dose will be sent to the pharmacy. An alternative of a once-weekly injectable GLP-1 agonist, such as Ozempic or Mounjaro, was discussed as a future option, but the decision was made to proceed with the metformin increase first. Goal A1c is to remain below 6.5 (2) HTN (hypertension): Code(s): I10 - Essential (primary) hypertension Category: Medical Qualifiers: Hypertension type: primary hypertension Qualified Code(s): I10 - Essential (primary) hypertension Plan: Patient's blood pressure elevated today in office. He reports that home blood pressures have been stable 120s to 130 systolic.. Reports he has white coat hypertension We have increased his amlodipine to 5 mg. Advised to continue monitoring blood pressure pressure to be below 140/90 consistently. (3) HLD (hyperlipidemia): Code(s): E78.5 - Hyperlipidemia, unspecified Category: Medical Qualifiers: Hyperlipidemia type: mixed hyperlipidemia Qualified Code(s): E78.2 - Mixed hyperlipidemia Plan: Most recent lipid panel showing improved triglycerides and appropriate total cholesterol and LDL. Goal LDL is to remain below 100 He will make some changes in his lifestyle and make dietary changes (4) Class 1 obesity: Code(s): E66.811 - Obesity, class 1 Category: Medical Plan: Patient does understand his BMI is over 30 will work on being more physically active and adapting to better eating habits to reduce his weight. We did discu ss trying a GLP 1 to help him with appetite suppression and weight reduction though he would like to hold off on this for now. Orders: Orders Microalbumin, Random (w Creat) Today E11.9 - Type 2 diabetes mellitus without complications Comprehensive White. Panel Fast Today E11.9 - Type 2 diabetes mellitus without complications Hemoglobin A1c Today E11.9 - Type 2 diabetes mellitus without complications Complete Blood Count no Diff Today E11.9 - Type 2 diabetes mellitus without complications Lipid Panel Today E78.2 - Mixed hyperlipidemia Referrals Ophthalmology Referral E11.9 - Type 2 diabetes mellitus without complications Medications: Changed From metformin 500 mg PO DAILY 90 days 90 tabs 2RF E11.9 - Type 2 diabetes mellitus without complications To metformin 500 mg PO BID 180 tabs 1RF 90 days E11.9 - Type 2 diabetes mellitus without complications
[2025-02-07 09:55] VITALS: BP 152/84; PULSE 48; RESP 18; TEMP 36.1; O2SAT 96; BMI 31.2
== END 2025-02-07 10:36 | disposition home or self-care (01) ==
LOC: HO.HMCH 09:48
PROVIDERS: PCP Physician Assistant; Visit Provider Physician Assistant
DX: E11.9 Type 2 diabetes mellitus without complications (principal); I10 Essential (primary) hypertension; E78.2 Mixed hyperlipidemia; E66.811 Obesity, class 1

== ENCOUNTER → 2025-02-07 09:47 | Outpatient (BNVA) | payer MEDICARE, SELFPAY | PROVIDERS: PCP Physician Assistant; Visit Provider Physician Assistant | DX: E11.9 Type 2 diabetes mellitus without complications (principal); I10 Essential (primary) hypertension; E78.2 Mixed hyperlipidemia; E66.811 Obesity, class 1 | CPT/HCPCS: 99212 ==